=== PATIENT | female | born 1950 ===

== ENCOUNTER 2017-05-18 18:44 | Inpatient (IN) ==
[2017-05-18 19:57] LABS: Basophils % 0.2 % (0.0-0.8); Eosinophils # 0.2 10*3/uL (0.0-0.87); Eosinophils % 2.2 % (0.00-10.9); Hematocrit 27.8 VOL% (35.7-47.0); Hemoglobin 9.4 GM/DL (12.0-16.0); Immature Granulocytes % 0.9 %; Immature Granulocytes Absolute 0.08 #; Lymphocytes # 0.8 10*3/uL (1.4-4.0); Lymphocytes % 8.8 % (21.3-54.2); Mean Corpuscular HGB Conc 33.8 GM/DL (32-36); Mean Corpuscular Hemoglobin 34 PG (27-34); Mean Corpuscular Volume 101.1 FL (87-102); Mean Platelet Volume 8.8 FL (9.6-12.0); Monocytes # 0.4 10*3/uL (0.11-0.8); Monocytes % 4.7 % (1.7-12.7); Neutrophils # 7.1 10*3/uL (1.4-7.4); Neutrophils % 83.2 % (38.7-73.9); Platelet Count 260 T/CUMM (130-400); Red Blood Count 2.75 MC/CUMM (3.8-5.5); Red Cell Distribution Width 15.6 % (9.3-17.3); White Blood Count 8.5 T/CUMM (4-12)
[2017-05-18 20:05] LABS: Barbiturates Screen,Urine Negative (Negative); Benzodiazepines Screen,Urine Negative (Negative); Cannabinoid Screen,Urine Negative (Negative); Opiate Screen,Urine Negative (Negative); Phencyclidine Screen,Urine Negative (Negative)
[2017-05-18 20:13] LABS: Calcium 7.2 MG/DL (8.5-10.1); Osmolality,Calculated 260.4 MOS/KG (273-304); Potassium 4.5 MMOL/L (3.5-5.1)
[2017-05-18] MEDS ORDERED: GLUCAGON 1 MG VIAL IM PRN (21:21)
[2017-05-18] MEDS ORDERED: ONDANSETRON 4 MG/2 ML VIAL IV PRN (21:21)
[2017-05-18] MEDS ORDERED: DEXTROSE 50% 25 GM/50 ML VIAL IV PRN (21:21)
[2017-05-18] MEDS ORDERED: DILTIAZEM INJ 100 MG in SODIUM CHLORIDE 0.9% 100 ML IV SCH (21:30)
[2017-05-18 21:42] LABS: Risk Ratio 4.38; Thyroid Stimulating Hormone 7.8 uIU/ml (0.358-3.74); VLDL CHOLESTEROL 34.8 MG/DL
[2017-05-18] MEDS ORDERED: ENOXAPARIN 30 MG/0.3 ML SYRINGE ONE (21:53)
[2017-05-18] MEDS ORDERED: DILTIAZEM 100 MG VIAL.ADD IV ONE (21:53)
[2017-05-18] MEDS ORDERED: ENOXAPARIN 40 MG/0.4 ML SYRINGE ONE (21:53)
[2017-05-18] MEDS: ENOXAPARIN 100 MG/ML SYRINGE SUBCUT SCH (22:00)
[2017-05-19 05:03] LABS: Basophils # 0.1 10*3/uL (0.0-0.2); Basophils % 0.5 % (0.0-0.8); Eosinophils # 0.4 10*3/uL (0.0-0.87); Eosinophils % 4.1 % (0.00-10.9); Hematocrit 24.6 VOL% (35.7-47.0); Hemoglobin 8.1 GM/DL (12.0-16.0); Immature Granulocytes % 0.8 %; Immature Granulocytes Absolute 0.08 #; Lymphocytes # 1.1 10*3/uL (1.4-4.0); Lymphocytes % 11.4 % (21.3-54.2); Mean Corpuscular HGB Conc 32.9 GM/DL (32-36); Mean Corpuscular Hemoglobin 34 PG (27-34); Mean Corpuscular Volume 103.4 FL (87-102); Mean Platelet Volume 8.6 FL (9.6-12.0); Monocytes # 0.6 10*3/uL (0.11-0.8); Monocytes % 6.1 % (1.7-12.7); Neutrophils # 7.6 10*3/uL (1.4-7.4); Neutrophils % 77.1 % (38.7-73.9); Platelet Count 250 T/CUMM (130-400); Red Blood Count 2.38 MC/CUMM (3.8-5.5); Red Cell Distribution Width 15.5 % (9.3-17.3); White Blood Count 9.9 T/CUMM (4-12)
[2017-05-19 05:41] LABS: Calcium 7.4 MG/DL (8.5-10.1); Osmolality,Calculated 253.4 MOS/KG (273-304); Potassium 4.4 MMOL/L (3.5-5.1)
[2017-05-19 05:44] LABS: % Iron Saturation 19.4 % (18-50)
[2017-05-19 06:32] LABS: Sedimentation Rate-Westergren 126 MM/HR (0-30)
[2017-05-19 06:46] LABS: Folate 10.1 NG/ML (5.4-24.0); Vitamin B12 1290 PG/ML (211-911)
[2017-05-19] MEDS ORDERED: ALBUTEROL 2.5 MG/3 ML NEB RESP TX PRN (07:50)
[2017-05-19] MEDS ORDERED: FUROSEMIDE 20 MG/2 ML VIAL IV SCH ×2 (08:00)
[2017-05-19] MEDS ORDERED: LISINOPRIL 10 MG TABLET PO SCH (09:00)
[2017-05-19] MEDS: ASPIRIN EC 81 MG TABLET PO SCH (09:10)
[2017-05-19] MEDS: POTASSIUM CHLORIDE 20 MEQ TABLET PO SCH (09:10)
[2017-05-19] MEDS: CALCIUM (CARBONATE)/VITAMIN D 500 MG-200 UNIT TABLET PO SCH (09:10)
[2017-05-19] MEDS: FERROUS SULFATE 325 MG TABLET PO SCH ×2 (09:10→21:16)
[2017-05-19] MEDS: MONTELUKAST 10 MG TABLET PO SCH (09:10)
[2017-05-19] MEDS: ENOXAPARIN 100 MG/ML SYRINGE SUBCUT SCH ×2 (09:11→21:15)
[2017-05-19] MEDS: FLUOROMETHOLONE 0.1% OPH SUSP 5 ML BOTTLE BOTH EYES SCH ×4 (09:18→21:16)
[2017-05-19] MEDS ORDERED: LISINOPRIL 5 MG TABLET PO SCH (09:59)
[2017-05-19 10:29] LABS: CKMB % 3.1 %
[2017-05-19 10:30] LABS: Troponin I Only 0.173 NG/ML (0.00-0.045)
[2017-05-19] MEDS ORDERED: METOPROLOL TARTRATE 25 MG TABLET PO SCH (10:30)
[2017-05-19] MEDS: LISINOPRIL 2.5 MG TABLET PO SCH (10:56)
[2017-05-19] MEDS: METOPROLOL TARTRATE 25 MG TABLET PO SCH ×2 (11:27→21:15)
[2017-05-19] MEDS: FENOFIBRATE 145 MG TABLET PO SCH (11:28)
[2017-05-19] MEDS: PANTOPRAZOLE 40 MG TABLET PO SCH (11:28)
[2017-05-19 12:41] LABS: CKMB % 3.1 %
[2017-05-19 12:42] LABS: Troponin I Only 0.203 NG/ML (0.00-0.045)
[2017-05-19] MEDS: FUROSEMIDE 20 MG/2 ML VIAL IV SCH (16:59)
[2017-05-19] MEDS ORDERED: INSULIN LISPRO 100 UNIT/ML SUBCUT ONE (20:28)
[2017-05-19] MEDS: POLYVINYL ALCOHOL 1.4% OPH SOLN 15 ML BOTTLE BOTH EYES SCH (21:16)
[2017-05-19] MEDS: INSULIN LISPRO 100 UNIT/ML SUBCUT SCH (22:00)
[2017-05-20 05:27] LABS: Basophils % 0.3 % (0.0-0.8); Eosinophils # 0.1 10*3/uL (0.0-0.87); Eosinophils % 0.6 % (0.00-10.9); Hematocrit 25.5 VOL% (35.7-47.0); Hemoglobin 8.3 GM/DL (12.0-16.0); Immature Granulocytes % 0.9 %; Immature Granulocytes Absolute 0.11 #; Lymphocytes # 1.2 10*3/uL (1.4-4.0); Lymphocytes % 9.3 % (21.3-54.2); Mean Corpuscular HGB Conc 32.5 GM/DL (32-36); Mean Corpuscular Hemoglobin 34 PG (27-34); Mean Corpuscular Volume 102.8 FL (87-102); Mean Platelet Volume 9.1 FL (9.6-12.0); Monocytes # 0.6 10*3/uL (0.11-0.8); Monocytes % 4.9 % (1.7-12.7); Neutrophils # 10.7 10*3/uL (1.4-7.4); Platelet Count 261 T/CUMM (130-400); Red Blood Count 2.48 MC/CUMM (3.8-5.5); Red Cell Distribution Width 15.5 % (9.3-17.3); White Blood Count 12.7 T/CUMM (4-12)
[2017-05-20 05:56] LABS: Calcium 7.4 MG/DL (8.5-10.1); Osmolality,Calculated 247.8 MOS/KG (273-304); Potassium 4.2 MMOL/L (3.5-5.1)
[2017-05-20] MEDS: FUROSEMIDE 20 MG/2 ML VIAL IV SCH ×2 (08:54→16:46)
[2017-05-20] MEDS: MONTELUKAST 10 MG TABLET PO SCH (08:55)
[2017-05-20] MEDS: FERROUS SULFATE 325 MG TABLET PO SCH ×2 (08:55→21:21)
[2017-05-20] MEDS: LISINOPRIL 2.5 MG TABLET PO SCH (08:56)
[2017-05-20] MEDS: CALCIUM (CARBONATE)/VITAMIN D 500 MG-200 UNIT TABLET PO SCH (08:56)
[2017-05-20] MEDS: FENOFIBRATE 145 MG TABLET PO SCH (08:56)
[2017-05-20] MEDS: INSULIN LISPRO 100 UNIT/ML SUBCUT SCH ×4 (08:57→21:21)
[2017-05-20] MEDS: POTASSIUM CHLORIDE 20 MEQ TABLET PO SCH (08:58)
[2017-05-20] MEDS: METOPROLOL TARTRATE 25 MG TABLET PO SCH ×2 (08:58→21:21)
[2017-05-20] MEDS: ASPIRIN EC 81 MG TABLET PO SCH (08:58)
[2017-05-20] MEDS: PANTOPRAZOLE 40 MG TABLET PO SCH (08:59)
[2017-05-20] MEDS: FLUOROMETHOLONE 0.1% OPH SUSP 5 ML BOTTLE BOTH EYES SCH ×4 (09:00→21:21)
[2017-05-20] MEDS: POLYVINYL ALCOHOL 1.4% OPH SOLN 15 ML BOTTLE BOTH EYES SCH ×2 (09:00→21:21)
[2017-05-20] MEDS: ENOXAPARIN 100 MG/ML SYRINGE SUBCUT SCH ×2 (09:00→21:21)
[2017-05-20] MEDS ORDERED: METOPROLOL TARTRATE 25 MG TABLET PO ONE (09:54)
[2017-05-20] MEDS ORDERED: DIGOXIN 0.5 MG/2 ML AMP IV ONE (10:40)
[2017-05-20] MEDS ORDERED: MAGNESIUM SULF RIDER 4 GM in PREMIX 1 EACH IV PRN (12:19)
[2017-05-20] MEDS ORDERED: MAGNESIUM SULF RIDER 2 GM in PREMIX 1 EACH IV PRN (12:19)
[2017-05-21] MEDS: ACETAMINOPHEN 325 MG TABLET PO PRN ×3 (00:14→10:47)
[2017-05-21 05:14] LABS: Basophils % 0.4 % (0.0-0.8); Eosinophils # 0.2 10*3/uL (0.0-0.87); Eosinophils % 1.6 % (0.00-10.9); Hematocrit 25.6 VOL% (35.7-47.0); Hemoglobin 8.6 GM/DL (12.0-16.0); Immature Granulocytes % 0.6 %; Immature Granulocytes Absolute 0.07 #; Lymphocytes # 1.1 10*3/uL (1.4-4.0); Lymphocytes % 9.8 % (21.3-54.2); Mean Corpuscular HGB Conc 33.6 GM/DL (32-36); Mean Corpuscular Hemoglobin 34 PG (27-34); Mean Platelet Volume 9.2 FL (9.6-12.0); Monocytes # 0.5 10*3/uL (0.11-0.8); Monocytes % 4.2 % (1.7-12.7); Neutrophils # 9.5 10*3/uL (1.4-7.4); Neutrophils % 83.4 % (38.7-73.9); Platelet Count 259 T/CUMM (130-400); Red Blood Count 2.51 MC/CUMM (3.8-5.5); Red Cell Distribution Width 15.1 % (9.3-17.3); White Blood Count 11.4 T/CUMM (4-12)
[2017-05-21 05:42] LABS: Calcium 7.5 MG/DL (8.5-10.1); Osmolality,Calculated 244.2 MOS/KG (273-304); Potassium 4.1 MMOL/L (3.5-5.1)
[2017-05-21] MEDS ORDERED: DIGOXIN 0.5 MG/2 ML AMP IV ONE (10:04)
[2017-05-21] MEDS: FUROSEMIDE 20 MG/2 ML VIAL IV SCH (10:13)
[2017-05-21] MEDS: INSULIN LISPRO 100 UNIT/ML SUBCUT SCH ×4 (10:38→22:28)
[2017-05-21] MEDS: POLYVINYL ALCOHOL 1.4% OPH SOLN 15 ML BOTTLE BOTH EYES SCH ×2 (10:43→20:43)
[2017-05-21] MEDS: ASPIRIN EC 81 MG TABLET PO SCH (10:44)
[2017-05-21] MEDS: FERROUS SULFATE 325 MG TABLET PO SCH ×2 (10:44→21:10)
[2017-05-21] MEDS: FLUOROMETHOLONE 0.1% OPH SUSP 5 ML BOTTLE BOTH EYES SCH ×4 (10:44→20:42)
[2017-05-21] MEDS: POTASSIUM CHLORIDE 20 MEQ TABLET PO SCH (10:45)
[2017-05-21] MEDS: METOPROLOL TARTRATE 25 MG TABLET PO SCH ×2 (10:45→20:41)
[2017-05-21] MEDS: CALCIUM (CARBONATE)/VITAMIN D 500 MG-200 UNIT TABLET PO SCH (10:45)
[2017-05-21] MEDS: ENOXAPARIN 100 MG/ML SYRINGE SUBCUT SCH ×2 (10:46→21:10)
[2017-05-21] MEDS: PANTOPRAZOLE 40 MG TABLET PO SCH (10:46)
[2017-05-21] MEDS: MONTELUKAST 10 MG TABLET PO SCH (10:46)
[2017-05-21] MEDS: FENOFIBRATE 145 MG TABLET PO SCH (10:46)
[2017-05-21] MEDS ORDERED: DIGOXIN 0.125 MG TABLET PO SCH (13:00)
[2017-05-21] MEDS: DIGOXIN 0.125 MG TABLET PO SCH (15:12)
[2017-05-22 05:49] LABS: Basophils % 0.3 % (0.0-0.8); Eosinophils # 0.3 10*3/uL (0.0-0.87); Eosinophils % 2.7 % (0.00-10.9); Hematocrit 27.2 VOL% (35.7-47.0); Hemoglobin 9.2 GM/DL (12.0-16.0); Immature Granulocytes % 0.7 %; Immature Granulocytes Absolute 0.08 #; Lymphocytes # 1.3 10*3/uL (1.4-4.0); Lymphocytes % 11.5 % (21.3-54.2); Mean Corpuscular HGB Conc 33.8 GM/DL (32-36); Mean Corpuscular Hemoglobin 34 PG (27-34); Mean Corpuscular Volume 100.4 FL (87-102); Mean Platelet Volume 9.2 FL (9.6-12.0); Monocytes # 0.5 10*3/uL (0.11-0.8); Monocytes % 4.8 % (1.7-12.7); Neutrophils # 8.8 10*3/uL (1.4-7.4); Platelet Count 285 T/CUMM (130-400); Red Blood Count 2.71 MC/CUMM (3.8-5.5); Red Cell Distribution Width 15.3 % (9.3-17.3)
[2017-05-22 06:21] LABS: Calcium 7.7 MG/DL (8.5-10.1); Osmolality,Calculated 246.1 MOS/KG (273-304); Potassium 4.7 MMOL/L (3.5-5.1)
[2017-05-22] MEDS: INSULIN LISPRO 100 UNIT/ML SUBCUT SCH ×4 (09:59→20:55)
[2017-05-22] MEDS: ASPIRIN EC 81 MG TABLET PO SCH (10:00)
[2017-05-22] MEDS: POLYVINYL ALCOHOL 1.4% OPH SOLN 15 ML BOTTLE BOTH EYES SCH ×2 (10:00→20:56)
[2017-05-22] MEDS: POTASSIUM CHLORIDE 20 MEQ TABLET PO SCH (10:01)
[2017-05-22] MEDS: FLUOROMETHOLONE 0.1% OPH SUSP 5 ML BOTTLE BOTH EYES SCH ×4 (10:01→20:55)
[2017-05-22] MEDS: METOPROLOL TARTRATE 25 MG TABLET PO SCH ×2 (10:02→20:56)
[2017-05-22] MEDS: CALCIUM (CARBONATE)/VITAMIN D 500 MG-200 UNIT TABLET PO SCH (10:02)
[2017-05-22] MEDS: PANTOPRAZOLE 40 MG TABLET PO SCH (10:02)
[2017-05-22] MEDS: FERROUS SULFATE 325 MG TABLET PO SCH ×2 (10:02→20:55)
[2017-05-22] MEDS: MONTELUKAST 10 MG TABLET PO SCH (10:03)
[2017-05-22] MEDS: ACETAMINOPHEN 325 MG TABLET PO PRN (10:03)
[2017-05-22] MEDS: ENOXAPARIN 100 MG/ML SYRINGE SUBCUT SCH ×2 (10:03→21:11)
[2017-05-22] MEDS: FENOFIBRATE 145 MG TABLET PO SCH (10:03)
[2017-05-22] MEDS: DIGOXIN 0.125 MG TABLET PO SCH (12:46)
[2017-05-23] MEDS: ACETAMINOPHEN 325 MG TABLET PO PRN ×2 (03:57→22:35)
[2017-05-23 05:13] LABS: Basophils % 0.4 % (0.0-0.8); Eosinophils # 0.2 10*3/uL (0.0-0.87); Eosinophils % 1.9 % (0.00-10.9); Hematocrit 24.6 VOL% (35.7-47.0); Hemoglobin 8.1 GM/DL (12.0-16.0); Immature Granulocytes % 0.8 %; Immature Granulocytes Absolute 0.09 #; Lymphocytes # 1.3 10*3/uL (1.4-4.0); Lymphocytes % 11.7 % (21.3-54.2); Mean Corpuscular HGB Conc 32.9 GM/DL (32-36); Mean Corpuscular Hemoglobin 34 PG (27-34); Mean Corpuscular Volume 102.9 FL (87-102); Monocytes # 0.6 10*3/uL (0.11-0.8); Monocytes % 5.5 % (1.7-12.7); Neutrophils # 9.1 10*3/uL (1.4-7.4); Neutrophils % 79.7 % (38.7-73.9); Platelet Count 270 T/CUMM (130-400); Red Blood Count 2.39 MC/CUMM (3.8-5.5); Red Cell Distribution Width 14.7 % (9.3-17.3); White Blood Count 11.3 T/CUMM (4-12)
[2017-05-23 05:41] LABS: Calcium 7.6 MG/DL (8.5-10.1); Osmolality,Calculated 244.1 MOS/KG (273-304)
[2017-05-23] MEDS: POLYVINYL ALCOHOL 1.4% OPH SOLN 15 ML BOTTLE BOTH EYES SCH ×2 (09:05→20:58)
[2017-05-23] MEDS: FLUOROMETHOLONE 0.1% OPH SUSP 5 ML BOTTLE BOTH EYES SCH ×4 (09:06→20:57)
[2017-05-23] MEDS: ENOXAPARIN 100 MG/ML SYRINGE SUBCUT SCH ×2 (09:07→20:59)
[2017-05-23] MEDS: ASPIRIN EC 81 MG TABLET PO SCH (09:11)
[2017-05-23] MEDS: FERROUS SULFATE 325 MG TABLET PO SCH ×2 (09:11→20:53)
[2017-05-23] MEDS: MONTELUKAST 10 MG TABLET PO SCH (09:12)
[2017-05-23] MEDS: METOPROLOL TARTRATE 25 MG TABLET PO SCH ×2 (09:12→20:53)
[2017-05-23] MEDS: POTASSIUM CHLORIDE 20 MEQ TABLET PO SCH (09:12)
[2017-05-23] MEDS: PANTOPRAZOLE 40 MG TABLET PO SCH (09:12)
[2017-05-23] MEDS: FENOFIBRATE 145 MG TABLET PO SCH (09:12)
[2017-05-23] MEDS: CALCIUM (CARBONATE)/VITAMIN D 500 MG-200 UNIT TABLET PO SCH (09:12)
[2017-05-23] MEDS: INSULIN LISPRO 100 UNIT/ML SUBCUT SCH ×4 (10:30→20:53)
[2017-05-23] MEDS ORDERED: TUBERCULIN SKIN TEST 0.1 ML SYRINGE INTRADERM ONE (11:05)
[2017-05-23] MEDS: SODIUM CHLORIDE 1 GM TABLET PO SCH ×2 (11:55→16:52)
[2017-05-23] MEDS: DIGOXIN 0.125 MG TABLET PO SCH (13:24)
[2017-05-24 03:09] LABS: Calcium 7.3 MG/DL (8.5-10.1); Osmolality,Calculated 250.8 MOS/KG (273-304); Potassium 4.8 MMOL/L (3.5-5.1)
[2017-05-24] MEDS: INSULIN LISPRO 100 UNIT/ML SUBCUT SCH ×4 (07:57→21:57)
[2017-05-24] MEDS: ACETAMINOPHEN 325 MG TABLET PO PRN (09:17)
[2017-05-24] MEDS: FLUOROMETHOLONE 0.1% OPH SUSP 5 ML BOTTLE BOTH EYES SCH ×4 (09:18→22:00)
[2017-05-24] MEDS: CALCIUM (CARBONATE)/VITAMIN D 500 MG-200 UNIT TABLET PO SCH (09:18)
[2017-05-24] MEDS: MONTELUKAST 10 MG TABLET PO SCH (09:18)
[2017-05-24] MEDS: POTASSIUM CHLORIDE 20 MEQ TABLET PO SCH (09:18)
[2017-05-24] MEDS: METOPROLOL TARTRATE 25 MG TABLET PO SCH ×2 (09:18→21:56)
[2017-05-24] MEDS: ENOXAPARIN 100 MG/ML SYRINGE SUBCUT SCH ×2 (09:18→21:56)
[2017-05-24] MEDS: FERROUS SULFATE 325 MG TABLET PO SCH ×2 (09:18→21:56)
[2017-05-24] MEDS: PANTOPRAZOLE 40 MG TABLET PO SCH (09:18)
[2017-05-24] MEDS: SODIUM CHLORIDE 1 GM TABLET PO SCH ×3 (09:18→17:51)
[2017-05-24] MEDS: ASPIRIN EC 81 MG TABLET PO SCH (09:18)
[2017-05-24] MEDS: POLYVINYL ALCOHOL 1.4% OPH SOLN 15 ML BOTTLE BOTH EYES SCH ×2 (09:18→23:07)
[2017-05-24] MEDS: FENOFIBRATE 145 MG TABLET PO SCH (09:18)
[2017-05-24] MEDS ORDERED: DIGOXIN 0.5 MG/2 ML AMP IV ONE (11:27)
[2017-05-24] MEDS: DIGOXIN 0.125 MG TABLET PO SCH (12:32)
[2017-05-24 13:38] LABS: Basophils % 0.2 % (0.0-0.8); Eosinophils # 0.1 10*3/uL (0.0-0.87); Eosinophils % 0.4 % (0.00-10.9); Hematocrit 24.4 VOL% (35.7-47.0); Immature Granulocytes % 0.8 %; Immature Granulocytes Absolute 0.11 #; Lymphocytes # 0.8 10*3/uL (1.4-4.0); Lymphocytes % 6.1 % (21.3-54.2); Mean Corpuscular HGB Conc 32.8 GM/DL (32-36); Mean Corpuscular Hemoglobin 34 PG (27-34); Mean Corpuscular Volume 104.7 FL (87-102); Mean Platelet Volume 8.9 FL (9.6-12.0); Monocytes # 0.8 10*3/uL (0.11-0.8); Monocytes % 5.9 % (1.7-12.7); Neutrophils # 11.4 10*3/uL (1.4-7.4); Neutrophils % 86.6 % (38.7-73.9); Platelet Count 287 T/CUMM (130-400); Red Blood Count 2.33 MC/CUMM (3.8-5.5); Red Cell Distribution Width 15.4 % (9.3-17.3); White Blood Count 13.2 T/CUMM (4-12)
[2017-05-24] MEDS ORDERED: SODIUM CHLORIDE 0.9% 1,000 ML IV PRN (20:44)
[2017-05-25] MEDS: ZALEPLON 5 MG CAPSULE PO PRN ×2 (00:31→21:33)
[2017-05-25] MEDS: LEVOTHYROXINE 25 MCG TABLET PO SCH (06:11)
[2017-05-25 07:37] LABS: Hematocrit 32.5 VOL% (35.7-47.0); Hemoglobin 11.1 GM/DL (12.0-16.0)
[2017-05-25 07:38] LABS: Basophils % 0.2 % (0.0-0.8); Eosinophils # 0.1 10*3/uL (0.0-0.87); Eosinophils % 0.9 % (0.00-10.9); Hematocrit 33.1 VOL% (35.7-47.0); Immature Granulocytes % 0.6 %; Immature Granulocytes Absolute 0.07 #; Lymphocytes % 8.5 % (21.3-54.2); Mean Corpuscular HGB Conc 33.2 GM/DL (32-36); Mean Corpuscular Hemoglobin 32 PG (27-34); Mean Corpuscular Volume 96.2 FL (87-102); Mean Platelet Volume 9.3 FL (9.6-12.0); Monocytes # 0.8 10*3/uL (0.11-0.8); Monocytes % 6.4 % (1.7-12.7); Neutrophils # 10.1 10*3/uL (1.4-7.4); Neutrophils % 83.4 % (38.7-73.9); Platelet Count 212 T/CUMM (130-400); Red Blood Count 3.44 MC/CUMM (3.8-5.5); Red Cell Distribution Width 19.5 % (9.3-17.3); White Blood Count 12.1 T/CUMM (4-12)
[2017-05-25] MEDS ORDERED: PHENOL 1.4% THROAT SPRAY 177 ML BOTTLE PO PRN (08:02)
[2017-05-25 08:05] LABS: Calcium 7.6 MG/DL (8.5-10.1); Osmolality,Calculated 252.5 MOS/KG (273-304)
[2017-05-25] MEDS: INSULIN LISPRO 100 UNIT/ML SUBCUT SCH ×4 (08:15→21:33)
[2017-05-25] MEDS: SODIUM CHLORIDE 1 GM TABLET PO SCH ×3 (08:22→17:07)
[2017-05-25] MEDS: METOPROLOL TARTRATE 25 MG TABLET PO SCH ×2 (08:23→21:33)
[2017-05-25] MEDS: CALCIUM (CARBONATE)/VITAMIN D 500 MG-200 UNIT TABLET PO SCH (08:23)
[2017-05-25] MEDS: glyBURIDE 5 MG TABLET PO SCH (08:23)
[2017-05-25] MEDS: MONTELUKAST 10 MG TABLET PO SCH (08:23)
[2017-05-25] MEDS: FENOFIBRATE 145 MG TABLET PO SCH (08:23)
[2017-05-25] MEDS: POLYVINYL ALCOHOL 1.4% OPH SOLN 15 ML BOTTLE BOTH EYES SCH ×2 (08:23→21:32)
[2017-05-25] MEDS: FLUOROMETHOLONE 0.1% OPH SUSP 5 ML BOTTLE BOTH EYES SCH ×4 (08:23→21:32)
[2017-05-25] MEDS: FERROUS SULFATE 325 MG TABLET PO SCH ×2 (08:23→21:33)
[2017-05-25] MEDS: ASPIRIN EC 81 MG TABLET PO SCH (08:23)
[2017-05-25] MEDS: PANTOPRAZOLE 40 MG TABLET PO SCH (08:23)
[2017-05-25] MEDS: POTASSIUM CHLORIDE 20 MEQ TABLET PO SCH (08:23)
[2017-05-25] MEDS: ENOXAPARIN 100 MG/ML SYRINGE SUBCUT SCH ×2 (09:02→21:33)
[2017-05-25] MEDS: ACETAMINOPHEN 325 MG TABLET PO PRN (12:25)
[2017-05-25] MEDS: DIGOXIN 0.125 MG TABLET PO SCH (12:42)
[2017-05-26 05:09] LABS: Basophils % 0.2 % (0.0-0.8); Eosinophils # 0.1 10*3/uL (0.0-0.87); Eosinophils % 1.4 % (0.00-10.9); Hematocrit 29.3 VOL% (35.7-47.0); Hemoglobin 9.7 GM/DL (12.0-16.0); Immature Granulocytes % 0.8 %; Immature Granulocytes Absolute 0.08 #; Lymphocytes # 0.6 10*3/uL (1.4-4.0); Lymphocytes % 5.9 % (21.3-54.2); Mean Corpuscular HGB Conc 33.1 GM/DL (32-36); Mean Corpuscular Hemoglobin 32 PG (27-34); Mean Corpuscular Volume 96.7 FL (87-102); Mean Platelet Volume 9.1 FL (9.6-12.0); Monocytes # 0.8 10*3/uL (0.11-0.8); Monocytes % 8.1 % (1.7-12.7); Neutrophils # 8.6 10*3/uL (1.4-7.4); Neutrophils % 83.6 % (38.7-73.9); Platelet Count 231 T/CUMM (130-400); Red Blood Count 3.03 MC/CUMM (3.8-5.5); Red Cell Distribution Width 19.8 % (9.3-17.3); White Blood Count 10.2 T/CUMM (4-12)
[2017-05-26 05:33] LABS: Calcium 7.5 MG/DL (8.5-10.1); Osmolality,Calculated 248.5 MOS/KG (273-304); Potassium 4.5 MMOL/L (3.5-5.1)
[2017-05-26] MEDS: LEVOTHYROXINE 25 MCG TABLET PO SCH (05:38)
[2017-05-26] MEDS: PANTOPRAZOLE 40 MG TABLET PO SCH (09:49)
[2017-05-26] MEDS: FENOFIBRATE 145 MG TABLET PO SCH (09:49)
[2017-05-26] MEDS: ASPIRIN EC 81 MG TABLET PO SCH (09:49)
[2017-05-26] MEDS: CALCIUM (CARBONATE)/VITAMIN D 500 MG-200 UNIT TABLET PO SCH (09:49)
[2017-05-26] MEDS: FERROUS SULFATE 325 MG TABLET PO SCH ×2 (09:49→22:22)
[2017-05-26] MEDS: ENOXAPARIN 100 MG/ML SYRINGE SUBCUT SCH ×2 (09:49→22:21)
[2017-05-26] MEDS: MONTELUKAST 10 MG TABLET PO SCH (09:49)
[2017-05-26] MEDS: INSULIN LISPRO 100 UNIT/ML SUBCUT SCH ×4 (09:50→22:18)
[2017-05-26] MEDS: METOPROLOL TARTRATE 25 MG TABLET PO SCH ×2 (09:50→22:22)
[2017-05-26] MEDS: SODIUM CHLORIDE 1 GM TABLET PO SCH ×3 (09:50→17:35)
[2017-05-26] MEDS: glyBURIDE 5 MG TABLET PO SCH (09:50)
[2017-05-26] MEDS: POLYVINYL ALCOHOL 1.4% OPH SOLN 15 ML BOTTLE BOTH EYES SCH ×2 (09:53→22:22)
[2017-05-26] MEDS: FLUOROMETHOLONE 0.1% OPH SUSP 5 ML BOTTLE BOTH EYES SCH ×4 (09:53→22:23)
[2017-05-26] MEDS: ACETAMINOPHEN 325 MG TABLET PO PRN ×2 (12:09→22:44)
[2017-05-26] MEDS: LEVOFLOXACIN INJ 250 MG in PREMIX 1 EACH IV SCH (12:10)
[2017-05-26] MEDS: DIGOXIN 0.125 MG TABLET PO SCH (13:39)
[2017-05-26] MEDS: cefTAZidime 500 MG in SYRINGE 1 EACH IV SCH ×2 (13:40→22:45)
[2017-05-27 05:23] LABS: Basophils % 0.4 % (0.0-0.8); Eosinophils # 0.4 10*3/uL (0.0-0.87); Eosinophils % 4.4 % (0.00-10.9); Hematocrit 30.1 VOL% (35.7-47.0); Hemoglobin 10.2 GM/DL (12.0-16.0); Immature Granulocytes % 0.8 %; Immature Granulocytes Absolute 0.06 #; Lymphocytes # 0.6 10*3/uL (1.4-4.0); Lymphocytes % 8.1 % (21.3-54.2); Mean Corpuscular HGB Conc 33.9 GM/DL (32-36); Mean Corpuscular Hemoglobin 32 PG (27-34); Mean Corpuscular Volume 95.3 FL (87-102); Mean Platelet Volume 9.3 FL (9.6-12.0); Monocytes # 0.6 10*3/uL (0.11-0.8); Monocytes % 7.5 % (1.7-12.7); Neutrophils # 6.2 10*3/uL (1.4-7.4); Neutrophils % 78.8 % (38.7-73.9); Platelet Count 224 T/CUMM (130-400); Red Blood Count 3.16 MC/CUMM (3.8-5.5); Red Cell Distribution Width 19.9 % (9.3-17.3); White Blood Count 7.9 T/CUMM (4-12)
[2017-05-27 05:55] LABS: Calcium 7.7 MG/DL (8.5-10.1); Osmolality,Calculated 252.2 MOS/KG (273-304); Potassium 4.4 MMOL/L (3.5-5.1)
[2017-05-27] MEDS: LEVOTHYROXINE 25 MCG TABLET PO SCH (06:49)
[2017-05-27] MEDS: FENOFIBRATE 145 MG TABLET PO SCH (09:18)
[2017-05-27] MEDS: SODIUM CHLORIDE 1 GM TABLET PO SCH ×3 (09:18→18:13)
[2017-05-27] MEDS: ENOXAPARIN 100 MG/ML SYRINGE SUBCUT SCH ×2 (09:18→21:27)
[2017-05-27] MEDS: METOPROLOL TARTRATE 25 MG TABLET PO SCH ×2 (09:18→21:27)
[2017-05-27] MEDS: FERROUS SULFATE 325 MG TABLET PO SCH ×2 (09:19→21:26)
[2017-05-27] MEDS: PANTOPRAZOLE 40 MG TABLET PO SCH (09:19)
[2017-05-27] MEDS: CALCIUM (CARBONATE)/VITAMIN D 500 MG-200 UNIT TABLET PO SCH (09:19)
[2017-05-27] MEDS: glyBURIDE 5 MG TABLET PO SCH (09:20)
[2017-05-27] MEDS: FLUOROMETHOLONE 0.1% OPH SUSP 5 ML BOTTLE BOTH EYES SCH ×4 (09:25→21:35)
[2017-05-27] MEDS: POLYVINYL ALCOHOL 1.4% OPH SOLN 15 ML BOTTLE BOTH EYES SCH ×2 (09:26→21:35)
[2017-05-27] MEDS: INSULIN LISPRO 100 UNIT/ML SUBCUT SCH ×4 (09:27→21:47)
[2017-05-27] MEDS: MONTELUKAST 10 MG TABLET PO SCH (09:36)
[2017-05-27] MEDS: ASPIRIN EC 81 MG TABLET PO SCH (11:22)
[2017-05-27] MEDS ORDERED: traMADol 50 MG TABLET PO PRN (12:22)
[2017-05-27] MEDS: LEVOFLOXACIN INJ 250 MG in PREMIX 1 EACH IV SCH (12:42)
[2017-05-27] MEDS: DORNASE ALFA 2.5 MG/2.5 ML VIAL RESP TX SCH ×2 (15:33→20:24)
[2017-05-27] MEDS: cefTAZidime 500 MG in SYRINGE 1 EACH IV SCH ×3 (16:04→21:27)
[2017-05-27] MEDS: DEXTROSE 50% 25 GM/50 ML VIAL IV PRN (16:29)
[2017-05-27] MEDS: ACETAMINOPHEN 325 MG TABLET PO PRN (21:26)
[2017-05-27] MEDS: ZALEPLON 5 MG CAPSULE PO PRN (21:27)
[2017-05-28] MEDS: ACETAMINOPHEN 325 MG TABLET PO PRN ×2 (02:28→09:14)
[2017-05-28 05:50] LABS: Basophils # 0.1 10*3/uL (0.0-0.2); Basophils % 0.7 % (0.0-0.8); Eosinophils # 0.5 10*3/uL (0.0-0.87); Eosinophils % 6.9 % (0.00-10.9); Hematocrit 29.4 VOL% (35.7-47.0); Hemoglobin 9.9 GM/DL (12.0-16.0); Immature Granulocytes % 0.6 %; Immature Granulocytes Absolute 0.04 #; Lymphocytes # 0.7 10*3/uL (1.4-4.0); Lymphocytes % 11.1 % (21.3-54.2); Mean Corpuscular HGB Conc 33.7 GM/DL (32-36); Mean Corpuscular Hemoglobin 33 PG (27-34); Mean Corpuscular Volume 97.7 FL (87-102); Mean Platelet Volume 9.3 FL (9.6-12.0); Monocytes # 0.8 10*3/uL (0.11-0.8); Monocytes % 11.2 % (1.7-12.7); Neutrophils # 4.6 10*3/uL (1.4-7.4); Neutrophils % 69.5 % (38.7-73.9); Platelet Count 211 T/CUMM (130-400); Red Blood Count 3.01 MC/CUMM (3.8-5.5); White Blood Count 6.7 T/CUMM (4-12)
[2017-05-28] MEDS: LEVOTHYROXINE 25 MCG TABLET PO SCH (06:25)
[2017-05-28] MEDS: cefTAZidime 500 MG in SYRINGE 1 EACH IV SCH ×3 (06:27→22:01)
[2017-05-28 06:47] LABS: Calcium 7.5 MG/DL (8.5-10.1); Osmolality,Calculated 249.4 MOS/KG (273-304); Potassium 4.4 MMOL/L (3.5-5.1)
[2017-05-28] MEDS: DORNASE ALFA 2.5 MG/2.5 ML VIAL RESP TX SCH ×2 (07:15→20:45)
[2017-05-28] MEDS: SODIUM CHLORIDE 1 GM TABLET PO SCH ×3 (09:08→11:27)
[2017-05-28] MEDS: FERROUS SULFATE 325 MG TABLET PO SCH ×2 (09:08→22:00)
[2017-05-28] MEDS: FENOFIBRATE 145 MG TABLET PO SCH (09:08)
[2017-05-28] MEDS: MONTELUKAST 10 MG TABLET PO SCH (09:08)
[2017-05-28] MEDS: ASPIRIN EC 81 MG TABLET PO SCH (09:08)
[2017-05-28] MEDS: FLUOROMETHOLONE 0.1% OPH SUSP 5 ML BOTTLE BOTH EYES SCH ×4 (09:09→22:01)
[2017-05-28] MEDS: PANTOPRAZOLE 40 MG TABLET PO SCH (09:09)
[2017-05-28] MEDS: POLYVINYL ALCOHOL 1.4% OPH SOLN 15 ML BOTTLE BOTH EYES SCH ×2 (09:09→22:01)
[2017-05-28] MEDS: INSULIN LISPRO 100 UNIT/ML SUBCUT SCH ×4 (09:10→22:38)
[2017-05-28] MEDS: CALCIUM (CARBONATE)/VITAMIN D 500 MG-200 UNIT TABLET PO SCH (09:14)
[2017-05-28] MEDS: METOPROLOL TARTRATE 25 MG TABLET PO SCH ×2 (09:15→22:00)
[2017-05-28] MEDS: ENOXAPARIN 100 MG/ML SYRINGE SUBCUT SCH (09:15)
[2017-05-28] MEDS: LEVOFLOXACIN INJ 250 MG in PREMIX 1 EACH IV SCH (13:11)
[2017-05-28] MEDS: ALBUTEROL 2.5 MG/3 ML NEB RESP TX SCH ×2 (13:16→20:41)
[2017-05-28] MEDS ORDERED: DILTIAZEM 60 MG TABLET PO SCH (14:30)
[2017-05-28] MEDS: TOLVAPTAN 15 MG TABLET PO SCH (17:41)
[2017-05-28] MEDS: DILTIAZEM CD 120 MG CAPSULE PO SCH (22:00)
[2017-05-28] MEDS: APIXABAN 5 MG TABLET PO SCH (22:00)
[2017-05-29] MEDS: ALBUTEROL 2.5 MG/3 ML NEB RESP TX SCH ×4 (00:41→21:28)
[2017-05-29 05:11] LABS: Calcium 7.5 MG/DL (8.5-10.1); Osmolality,Calculated 256.5 MOS/KG (273-304); Potassium 4.6 MMOL/L (3.5-5.1)
[2017-05-29] MEDS: cefTAZidime 500 MG in SYRINGE 1 EACH IV SCH ×3 (06:29→20:50)
[2017-05-29] MEDS: LEVOTHYROXINE 25 MCG TABLET PO SCH (06:32)
[2017-05-29] MEDS: DORNASE ALFA 2.5 MG/2.5 ML VIAL RESP TX SCH ×2 (08:58→21:28)
[2017-05-29] MEDS: FLUOROMETHOLONE 0.1% OPH SUSP 5 ML BOTTLE BOTH EYES SCH ×4 (09:04→20:50)
[2017-05-29] MEDS: POLYVINYL ALCOHOL 1.4% OPH SOLN 15 ML BOTTLE BOTH EYES SCH ×2 (09:05→20:50)
[2017-05-29] MEDS: MONTELUKAST 10 MG TABLET PO SCH (09:05)
[2017-05-29] MEDS: DILTIAZEM CD 120 MG CAPSULE PO SCH ×2 (09:05→20:49)
[2017-05-29] MEDS: ASPIRIN EC 81 MG TABLET PO SCH (09:05)
[2017-05-29] MEDS: FERROUS SULFATE 325 MG TABLET PO SCH ×2 (09:06→20:49)
[2017-05-29] MEDS: CALCIUM (CARBONATE)/VITAMIN D 500 MG-200 UNIT TABLET PO SCH (09:06)
[2017-05-29] MEDS: METOPROLOL TARTRATE 25 MG TABLET PO SCH ×2 (09:06→20:49)
[2017-05-29] MEDS: FENOFIBRATE 145 MG TABLET PO SCH (09:06)
[2017-05-29] MEDS: PANTOPRAZOLE 40 MG TABLET PO SCH (09:06)
[2017-05-29] MEDS: APIXABAN 5 MG TABLET PO SCH ×2 (09:12→20:49)
[2017-05-29] MEDS: INSULIN LISPRO 100 UNIT/ML SUBCUT SCH ×3 (09:13→16:36)
[2017-05-29] MEDS: TOLVAPTAN 15 MG TABLET PO SCH (09:13)
[2017-05-29] MEDS: LEVOFLOXACIN INJ 250 MG in PREMIX 1 EACH IV SCH (12:44)
[2017-05-29] MEDS: ACETAMINOPHEN 325 MG TABLET PO PRN (20:48)
[2017-05-30] MEDS: cefTAZidime 500 MG in SYRINGE 1 EACH IV SCH ×4 (00:08→21:01)
[2017-05-30] MEDS: INSULIN LISPRO 100 UNIT/ML SUBCUT SCH ×5 (00:08→22:21)
[2017-05-30] MEDS: ALBUTEROL 2.5 MG/3 ML NEB RESP TX SCH ×4 (02:39→21:10)
[2017-05-30 04:48] LABS: Basophils % 0.1 % (0.0-0.8); Eosinophils # 0.1 10*3/uL (0.0-0.87); Eosinophils % 1.1 % (0.00-10.9); Hematocrit 30.7 VOL% (35.7-47.0); Hemoglobin 10.4 GM/DL (12.0-16.0); Immature Granulocytes % 0.7 %; Immature Granulocytes Absolute 0.06 #; Lymphocytes # 0.5 10*3/uL (1.4-4.0); Mean Corpuscular HGB Conc 33.9 GM/DL (32-36); Mean Corpuscular Hemoglobin 33 PG (27-34); Mean Corpuscular Volume 97.2 FL (87-102); Mean Platelet Volume 9.2 FL (9.6-12.0); Monocytes # 0.7 10*3/uL (0.11-0.8); Monocytes % 7.3 % (1.7-12.7); Neutrophils # 7.9 10*3/uL (1.4-7.4); Neutrophils % 85.8 % (38.7-73.9); Platelet Count 222 T/CUMM (130-400); Red Blood Count 3.16 MC/CUMM (3.8-5.5); Red Cell Distribution Width 19.9 % (9.3-17.3); White Blood Count 9.2 T/CUMM (4-12)
[2017-05-30 05:30] LABS: Calcium 8.1 MG/DL (8.5-10.1); Osmolality,Calculated 265.7 MOS/KG (273-304); Potassium 4.4 MMOL/L (3.5-5.1)
[2017-05-30] MEDS: LEVOTHYROXINE 25 MCG TABLET PO SCH (06:01)
[2017-05-30] MEDS: DORNASE ALFA 2.5 MG/2.5 ML VIAL RESP TX SCH ×2 (07:06→21:10)
[2017-05-30] MEDS: POLYVINYL ALCOHOL 1.4% OPH SOLN 15 ML BOTTLE BOTH EYES SCH ×2 (09:16→20:56)
[2017-05-30] MEDS: APIXABAN 5 MG TABLET PO SCH ×2 (09:17→20:55)
[2017-05-30] MEDS: ACETAMINOPHEN 325 MG TABLET PO PRN (09:17)
[2017-05-30] MEDS: MONTELUKAST 10 MG TABLET PO SCH (09:18)
[2017-05-30] MEDS: FERROUS SULFATE 325 MG TABLET PO SCH ×2 (09:18→20:55)
[2017-05-30] MEDS: DILTIAZEM CD 120 MG CAPSULE PO SCH ×2 (09:18→22:21)
[2017-05-30] MEDS: CALCIUM (CARBONATE)/VITAMIN D 500 MG-200 UNIT TABLET PO SCH (09:18)
[2017-05-30] MEDS: ASPIRIN EC 81 MG TABLET PO SCH (09:18)
[2017-05-30] MEDS: PANTOPRAZOLE 40 MG TABLET PO SCH (09:18)
[2017-05-30] MEDS: TOLVAPTAN 15 MG TABLET PO SCH (09:18)
[2017-05-30] MEDS: FENOFIBRATE 145 MG TABLET PO SCH (09:18)
[2017-05-30] MEDS: METOPROLOL TARTRATE 25 MG TABLET PO SCH ×2 (09:18→20:55)
[2017-05-30] MEDS: FLUOROMETHOLONE 0.1% OPH SUSP 5 ML BOTTLE BOTH EYES SCH ×4 (09:18→20:55)
[2017-05-30] MEDS: LEVOFLOXACIN INJ 250 MG in PREMIX 1 EACH IV SCH (11:58)
[2017-05-30] MEDS ORDERED: DILTIAZEM 100 MG VIAL.ADD IV ONE (19:30)
[2017-05-30] MEDS ORDERED: DILTIAZEM 50 MG/10 ML VIAL IV ONE (19:32)
[2017-05-30 19:38] LABS: Allen Test Positive; Pt O2 Delivery Device Simple Mask
[2017-05-30 19:40] LABS: ABG Base Excess -0.3 MMOL/L (-2.5-2.5); ABG HCO3 23.9 MMOL/L (20-26); ABG Oxygen Saturation 82.3 % (95-100); ABG PCO2 35.2 MM HG (35-48); ABG PH 7.433 (7.35-7.45); ABG PO2 48.7 MM HG (80-95); ABG TCO2 21.4 MMOL/L (23-27)
[2017-05-30 19:55] LABS: Calcium 8.3 MG/DL (8.5-10.1); Osmolality,Calculated 264.1 MOS/KG (273-304); Potassium 4.7 MMOL/L (3.5-5.1)
[2017-05-30 20:44] LABS: CKMB % 7.7 %
[2017-05-30 20:46] LABS: Troponin I Only 0.083 NG/ML (0.00-0.045)
[2017-05-30] MEDS ORDERED: FUROSEMIDE 40 MG/4 ML VIAL IV ONE (22:01)
[2017-05-30] MEDS: DILTIAZEM INJ 100 MG in SODIUM CHLORIDE 0.9% 100 ML IV SCH (22:50)
[2017-05-30] MEDS ORDERED: SUCCINYLCHOLINE 200 MG/10 ML VIAL ONE (23:08)
[2017-05-30] MEDS ORDERED: ETOMIDATE 20 MG/10 ML VIAL IV ONE ×2 (23:08→23:10)
[2017-05-30] MEDS ORDERED: SUCCINYLCHOLINE 200 MG/10 ML VIAL IV ONE (23:11)
[2017-05-31] MEDS: MIDAZOLAM 100 MG in SODIUM CHLORIDE 0.9% 80 ML IV SCH (00:23)
[2017-05-31] MEDS: fentaNYL INJ 1,250 MCG in SODIUM CHLORIDE 0.9% 225 ML IV SCH ×2 (00:24→18:17)
[2017-05-31] MEDS: ALBUTEROL 2.5 MG/3 ML NEB RESP TX SCH ×4 (02:13→21:38)
[2017-05-31 02:28] LABS: ABG Base Excess -1.2 MMOL/L (-2.5-2.5); ABG HCO3 23.2 MMOL/L (20-26); ABG Oxygen Saturation 98.6 % (95-100); ABG PCO2 37.8 MM HG (35-48); ABG PH 7.406 (7.35-7.45); ABG PO2 145.4 MM HG (80-95); ABG TCO2 24.4 MMOL/L (23-27)
[2017-05-31 05:05] LABS: Basophils % 0.2 % (0.0-0.8); Eosinophils # 0.1 10*3/uL (0.0-0.87); Eosinophils % 0.4 % (0.00-10.9); Hematocrit 29.7 VOL% (35.7-47.0); Hemoglobin 9.2 GM/DL (12.0-16.0); Immature Granulocytes Absolute 0.14 #; Lymphocytes # 0.7 10*3/uL (1.4-4.0); Mean Corpuscular Hemoglobin 32 PG (27-34); Mean Corpuscular Volume 102.1 FL (87-102); Mean Platelet Volume 9.3 FL (9.6-12.0); Monocytes # 0.8 10*3/uL (0.11-0.8); Monocytes % 6.1 % (1.7-12.7); Neutrophils # 11.7 10*3/uL (1.4-7.4); Neutrophils % 87.3 % (38.7-73.9); Platelet Count 237 T/CUMM (130-400); Red Blood Count 2.91 MC/CUMM (3.8-5.5); Red Cell Distribution Width 19.8 % (9.3-17.3); White Blood Count 13.4 T/CUMM (4-12)
[2017-05-31] MEDS ORDERED: PHENYLEPHRINE DRIP 40 MG/250 ML PREMIX IV SCH (05:30)
[2017-05-31 05:42] LABS: Calcium 7.9 MG/DL (8.5-10.1); Osmolality,Calculated 264.9 MOS/KG (273-304); Potassium 4.7 MMOL/L (3.5-5.1)
[2017-05-31] MEDS: LEVOTHYROXINE 25 MCG TABLET PO SCH (05:49)
[2017-05-31] MEDS: cefTAZidime 500 MG in SYRINGE 1 EACH IV SCH (05:53)
[2017-05-31] MEDS: DILTIAZEM INJ 100 MG in SODIUM CHLORIDE 0.9% 100 ML IV SCH ×2 (06:06→22:44)
[2017-05-31] MEDS: DORNASE ALFA 2.5 MG/2.5 ML VIAL RESP TX SCH ×2 (07:58→21:38)
[2017-05-31] MEDS: FUROSEMIDE 40 MG/4 ML VIAL IV SCH ×2 (09:15→16:55)
[2017-05-31] MEDS: PANTOPRAZOLE 40 MG VIAL IV SCH (09:15)
[2017-05-31] MEDS: CALCIUM (CARBONATE)/VITAMIN D 500 MG-200 UNIT TABLET PO SCH (09:15)
[2017-05-31] MEDS: METOPROLOL TARTRATE 25 MG TABLET PO SCH ×2 (09:16→21:46)
[2017-05-31] MEDS: FENOFIBRATE 145 MG TABLET PO SCH (09:16)
[2017-05-31] MEDS: APIXABAN 5 MG TABLET PO SCH ×2 (09:16→21:45)
[2017-05-31] MEDS: FERROUS SULFATE 325 MG TABLET PO SCH ×2 (09:16→21:46)
[2017-05-31] MEDS: ASPIRIN EC 81 MG TABLET PO SCH (09:16)
[2017-05-31] MEDS: MONTELUKAST 10 MG TABLET PO SCH (09:16)
[2017-05-31] MEDS: DILTIAZEM CD 120 MG CAPSULE PO SCH ×3 (11:01→22:49)
[2017-05-31] MEDS: FLUOROMETHOLONE 0.1% OPH SUSP 5 ML BOTTLE BOTH EYES SCH ×4 (11:02→22:50)
[2017-05-31] MEDS: POLYVINYL ALCOHOL 1.4% OPH SOLN 15 ML BOTTLE BOTH EYES SCH ×2 (11:02→22:45)
[2017-05-31] MEDS: LEVOFLOXACIN INJ 750 MG in PREMIX 1 EACH IV SCH (11:35)
[2017-05-31] MEDS: MEROPENEM 1,000 MG in SYRINGE 1 EACH IV SCH ×2 (11:36→22:50)
[2017-05-31] MEDS: VANCOMYCIN INJ 1,000 MG in SODIUM CHLORIDE 0.9% 250 ML IV SCH (13:14)
[2017-05-31] MEDS: PHENYLEPHRINE INJ 160 MG in SODIUM CHLORIDE 0.9% 234 ML IV SCH (13:15)
[2017-05-31] MEDS: INSULIN LISPRO 100 UNIT/ML SUBCUT SCH ×3 (13:15→18:06)
[2017-05-31] MEDS: DEXTROSE 50% 25 GM/50 ML VIAL IV PRN (18:17)
[2017-06-01] MEDS: VANCOMYCIN INJ 1,000 MG in SODIUM CHLORIDE 0.9% 250 ML IV SCH (00:15)
[2017-06-01] MEDS: fentaNYL INJ 1,250 MCG in SODIUM CHLORIDE 0.9% 225 ML IV SCH ×3 (01:21→22:52)
[2017-06-01] MEDS: MIDAZOLAM 100 MG in SODIUM CHLORIDE 0.9% 80 ML IV SCH ×2 (01:23→22:52)
[2017-06-01] MEDS: INSULIN LISPRO 100 UNIT/ML SUBCUT SCH ×4 (01:23→18:25)
[2017-06-01] MEDS: ALBUTEROL 2.5 MG/3 ML NEB RESP TX SCH ×4 (01:25→20:32)
[2017-06-01 04:08] LABS: Basophils # 0.1 10*3/uL (0.0-0.2); Basophils % 0.9 % (0.0-0.8); Eosinophils % 6.2 % (0.00-10.9); Hematocrit 28.3 VOL% (35.7-47.0); Hemoglobin 9.2 GM/DL (12.0-16.0); Immature Granulocytes % 0.9 %; Immature Granulocytes Absolute 0.13 #; Lymphocytes # 1.2 10*3/uL (1.4-4.0); Mean Corpuscular HGB Conc 32.5 GM/DL (32-36); Mean Corpuscular Hemoglobin 33 PG (27-34); Mean Corpuscular Volume 100.7 FL (87-102); Mean Platelet Volume 9.4 FL (9.6-12.0); Monocytes % 6.2 % (1.7-12.7); Neutrophils # 11.9 10*3/uL (1.4-7.4); Neutrophils % 77.8 % (38.7-73.9); Platelet Count 237 T/CUMM (130-400); Red Blood Count 2.81 MC/CUMM (3.8-5.5); Red Cell Distribution Width 19.5 % (9.3-17.3); White Blood Count 15.2 T/CUMM (4-12)
[2017-06-01 04:11] LABS: ABG Base Excess 0.3 MMOL/L (-2.5-2.5); ABG HCO3 23.5 MMOL/L (20-26); ABG Oxygen Saturation 99.3 % (95-100); ABG PCO2 32.6 MM HG (35-48); ABG PH 7.475 (7.35-7.45); ABG PO2 238.1 MM HG (80-95); ABG TCO2 24.5 MMOL/L (23-27)
[2017-06-01 05:33] LABS: Calcium 7.6 MG/DL (8.5-10.1); Osmolality,Calculated 270.5 MOS/KG (273-304); Potassium 4.2 MMOL/L (3.5-5.1)
[2017-06-01] MEDS: LEVOTHYROXINE 25 MCG TABLET PO SCH (06:11)
[2017-06-01] MEDS: DORNASE ALFA 2.5 MG/2.5 ML VIAL RESP TX SCH ×2 (07:36→20:42)
[2017-06-01] MEDS: APIXABAN 5 MG TABLET PO SCH ×2 (09:31→21:04)
[2017-06-01] MEDS: ASPIRIN EC 81 MG TABLET PO SCH (09:32)
[2017-06-01] MEDS: METOPROLOL TARTRATE 25 MG TABLET PO SCH ×2 (09:32→21:05)
[2017-06-01] MEDS: FUROSEMIDE 40 MG/4 ML VIAL IV SCH ×2 (09:32→15:18)
[2017-06-01] MEDS: CALCIUM (CARBONATE)/VITAMIN D 500 MG-200 UNIT TABLET PO SCH (09:32)
[2017-06-01] MEDS: FENOFIBRATE 145 MG TABLET PO SCH (09:32)
[2017-06-01] MEDS: PANTOPRAZOLE 40 MG VIAL IV SCH (09:32)
[2017-06-01] MEDS: MONTELUKAST 10 MG TABLET PO SCH (09:32)
[2017-06-01] MEDS: FERROUS SULFATE 325 MG TABLET PO SCH ×2 (09:32→21:03)
[2017-06-01] MEDS: MEROPENEM 1,000 MG in SYRINGE 1 EACH IV SCH ×2 (09:57→21:05)
[2017-06-01] MEDS: LEVOFLOXACIN INJ 750 MG in PREMIX 1 EACH IV SCH (09:57)
[2017-06-01] MEDS: DILTIAZEM CD 120 MG CAPSULE PO SCH ×2 (10:02→21:04)
[2017-06-01] MEDS: POLYVINYL ALCOHOL 1.4% OPH SOLN 15 ML BOTTLE BOTH EYES SCH ×2 (10:13→21:05)
[2017-06-01] MEDS: FLUOROMETHOLONE 0.1% OPH SUSP 5 ML BOTTLE BOTH EYES SCH ×4 (10:13→21:05)
[2017-06-01] MEDS: PHENYLEPHRINE INJ 160 MG in SODIUM CHLORIDE 0.9% 234 ML IV SCH ×2 (10:15→15:22)
[2017-06-01] MEDS: DILTIAZEM INJ 100 MG in SODIUM CHLORIDE 0.9% 100 ML IV SCH ×2 (11:01→22:51)
[2017-06-01] MEDS ORDERED: SODIUM CHLORIDE 0.9% 250 ML IV ONE (18:30)
[2017-06-02] MEDS ORDERED: VANCOMYCIN INJ 1,000 MG in SODIUM CHLORIDE 0.9% 250 ML IV SCH
[2017-06-02] MEDS: INSULIN LISPRO 100 UNIT/ML SUBCUT SCH ×4 (00:45→18:34)
[2017-06-02] MEDS ORDERED: SODIUM CHLORIDE 0.9% 250 ML IV ONE (01:00)
[2017-06-02] MEDS: ALBUTEROL 2.5 MG/3 ML NEB RESP TX SCH ×4 (01:38→19:32)
[2017-06-02] MEDS: PHENYLEPHRINE INJ 160 MG in SODIUM CHLORIDE 0.9% 234 ML IV SCH ×3 (03:27→22:06)
[2017-06-02 04:23] LABS: Basophils # 0.1 10*3/uL (0.0-0.2); Basophils % 0.8 % (0.0-0.8); Eosinophils # 1.1 10*3/uL (0.0-0.87); Hematocrit 28.4 VOL% (35.7-47.0); Hemoglobin 9.1 GM/DL (12.0-16.0); Immature Granulocytes % 1.1 %; Immature Granulocytes Absolute 0.18 #; Lymphocytes # 0.9 10*3/uL (1.4-4.0); Lymphocytes % 5.5 % (21.3-54.2); Mean Corpuscular Hemoglobin 33 PG (27-34); Mean Corpuscular Volume 101.8 FL (87-102); Mean Platelet Volume 9.4 FL (9.6-12.0); Monocytes # 0.8 10*3/uL (0.11-0.8); Neutrophils # 12.7 10*3/uL (1.4-7.4); Neutrophils % 80.6 % (38.7-73.9); Platelet Count 217 T/CUMM (130-400); Red Blood Count 2.79 MC/CUMM (3.8-5.5); Red Cell Distribution Width 19.9 % (9.3-17.3); White Blood Count 15.8 T/CUMM (4-12)
[2017-06-02 04:33] LABS: ABG Base Excess -1.5 MMOL/L (-2.5-2.5); ABG HCO3 23.2 MMOL/L (20-26); ABG Oxygen Saturation 99.4 % (95-100); ABG PH 7.376 (7.35-7.45); ABG TCO2 21.6 MMOL/L (23-27)
[2017-06-02 05:04] LABS: Prealbumin < 3.0 MG/DL (20-40)
[2017-06-02 05:23] LABS: Calcium 7.5 MG/DL (8.5-10.1); Osmolality,Calculated 282.2 MOS/KG (273-304); Potassium 4.2 MMOL/L (3.5-5.1)
[2017-06-02] MEDS: LEVOTHYROXINE 25 MCG TABLET PO SCH (05:50)
[2017-06-02] MEDS: DILTIAZEM INJ 100 MG in SODIUM CHLORIDE 0.9% 100 ML IV SCH ×2 (05:51→21:52)
[2017-06-02] MEDS: fentaNYL INJ 1,250 MCG in SODIUM CHLORIDE 0.9% 225 ML IV SCH ×4 (05:53→23:36)
[2017-06-02] MEDS: DORNASE ALFA 2.5 MG/2.5 ML VIAL RESP TX SCH ×2 (07:35→19:32)
[2017-06-02] MEDS ORDERED: SODIUM CHLORIDE 0.9% 500 ML IV ONE ×2 (09:00→17:01)
[2017-06-02] MEDS: FUROSEMIDE 40 MG/4 ML VIAL IV SCH (09:36)
[2017-06-02] MEDS: POLYVINYL ALCOHOL 1.4% OPH SOLN 15 ML BOTTLE BOTH EYES SCH ×2 (09:37→21:27)
[2017-06-02] MEDS: PANTOPRAZOLE 40 MG VIAL IV SCH (09:37)
[2017-06-02] MEDS: MONTELUKAST 10 MG TABLET PO SCH (09:39)
[2017-06-02] MEDS: METOPROLOL TARTRATE 25 MG TABLET PO SCH ×2 (09:40→21:46)
[2017-06-02] MEDS: FENOFIBRATE 145 MG TABLET PO SCH (09:40)
[2017-06-02] MEDS: CALCIUM (CARBONATE)/VITAMIN D 500 MG-200 UNIT TABLET PO SCH (09:40)
[2017-06-02] MEDS: FERROUS SULFATE 325 MG TABLET PO SCH ×2 (09:40→21:27)
[2017-06-02] MEDS: ASPIRIN EC 81 MG TABLET PO SCH (09:40)
[2017-06-02] MEDS: APIXABAN 5 MG TABLET PO SCH ×2 (09:40→21:27)
[2017-06-02] MEDS: FLUOROMETHOLONE 0.1% OPH SUSP 5 ML BOTTLE BOTH EYES SCH ×4 (09:57→21:27)
[2017-06-02] MEDS: DILTIAZEM CD 120 MG CAPSULE PO SCH (09:57)
[2017-06-02] MEDS: MEROPENEM 1,000 MG in SYRINGE 1 EACH IV SCH ×2 (09:58→21:55)
[2017-06-02] MEDS ORDERED: LACTULOSE 20 GM/30 ML UDCUP PO PRN (13:20)
[2017-06-02] MEDS: DILTIAZEM 30 MG TABLET PO SCH ×2 (17:40→21:27)
[2017-06-02] MEDS: MIDAZOLAM 100 MG in SODIUM CHLORIDE 0.9% 80 ML IV SCH ×2 (21:30→23:36)
[2017-06-03] MEDS: ALBUTEROL 2.5 MG/3 ML NEB RESP TX SCH ×4 (00:13→20:27)
[2017-06-03] MEDS: INSULIN LISPRO 100 UNIT/ML SUBCUT SCH ×4 (00:32→17:31)
[2017-06-03 04:36] LABS: Allen Test Positive; Pt O2 Delivery Device Ventilator
[2017-06-03 04:37] LABS: ABG Base Excess -1.1 MMOL/L (-2.5-2.5); ABG HCO3 23.6 MMOL/L (20-26); ABG Oxygen Saturation 99.4 % (95-100); ABG PCO2 42.6 MM HG (35-48); ABG PH 7.364 (7.35-7.45); ABG TCO2 22.3 MMOL/L (23-27)
[2017-06-03] MEDS: LEVOTHYROXINE 25 MCG TABLET PO SCH (06:27)
[2017-06-03] MEDS: DORNASE ALFA 2.5 MG/2.5 ML VIAL RESP TX SCH ×2 (07:58→20:40)
[2017-06-03] MEDS ORDERED: VANCOMYCIN INJ 1,000 MG in SODIUM CHLORIDE 0.9% 250 ML IV PRN (08:46)
[2017-06-03] MEDS: MEROPENEM 1,000 MG in SYRINGE 1 EACH IV SCH ×2 (09:16→22:20)
[2017-06-03] MEDS: DILTIAZEM 30 MG TABLET PO SCH ×2 (09:16→13:10)
[2017-06-03] MEDS: METOPROLOL TARTRATE 25 MG TABLET PO SCH (09:17)
[2017-06-03] MEDS: MONTELUKAST 10 MG TABLET PO SCH (09:17)
[2017-06-03] MEDS: ASPIRIN EC 81 MG TABLET PO SCH (09:17)
[2017-06-03] MEDS: FERROUS SULFATE 325 MG TABLET PO SCH ×2 (09:17→20:07)
[2017-06-03] MEDS: CALCIUM (CARBONATE)/VITAMIN D 500 MG-200 UNIT TABLET PO SCH (09:17)
[2017-06-03] MEDS: FENOFIBRATE 145 MG TABLET PO SCH (09:17)
[2017-06-03] MEDS: POLYVINYL ALCOHOL 1.4% OPH SOLN 15 ML BOTTLE BOTH EYES SCH ×2 (09:17→20:07)
[2017-06-03] MEDS: FLUOROMETHOLONE 0.1% OPH SUSP 5 ML BOTTLE BOTH EYES SCH ×4 (09:18→20:07)
[2017-06-03] MEDS: PANTOPRAZOLE 40 MG VIAL IV SCH (09:18)
[2017-06-03] MEDS: APIXABAN 5 MG TABLET PO SCH ×2 (09:32→20:07)
[2017-06-03] MEDS: fentaNYL INJ 1,250 MCG in SODIUM CHLORIDE 0.9% 225 ML IV SCH ×2 (09:59→22:11)
[2017-06-03] MEDS: LEVOFLOXACIN INJ 750 MG in PREMIX 1 EACH IV SCH (10:00)
[2017-06-03] MEDS ORDERED: VANCOMYCIN INJ 1,000 MG in SODIUM CHLORIDE 0.9% 250 ML IV ONE (12:00)
[2017-06-03 12:19] LABS: Basophils # 0.1 10*3/uL (0.0-0.2); Basophils % 0.7 % (0.0-0.8); Eosinophils # 0.6 10*3/uL (0.0-0.87); Eosinophils % 5.3 % (0.00-10.9); Hematocrit 30.7 VOL% (35.7-47.0); Hemoglobin 9.9 GM/DL (12.0-16.0); Immature Granulocytes % 0.9 %; Lymphocytes # 0.7 10*3/uL (1.4-4.0); Lymphocytes % 6.1 % (21.3-54.2); Mean Corpuscular HGB Conc 32.2 GM/DL (32-36); Mean Corpuscular Hemoglobin 33 PG (27-34); Mean Corpuscular Volume 102.3 FL (87-102); Mean Platelet Volume 9.9 FL (9.6-12.0); Monocytes # 0.7 10*3/uL (0.11-0.8); Monocytes % 5.8 % (1.7-12.7); Neutrophils # 9.5 10*3/uL (1.4-7.4); Neutrophils % 81.2 % (38.7-73.9); Platelet Count 205 T/CUMM (130-400); Red Cell Distribution Width 20.5 % (9.3-17.3); White Blood Count 11.7 T/CUMM (4-12)
[2017-06-03 12:42] LABS: Calcium 7.7 MG/DL (8.5-10.1); Osmolality,Calculated 295.8 MOS/KG (273-304); Potassium 4.9 MMOL/L (3.5-5.1)
[2017-06-03] MEDS: PHENYLEPHRINE INJ 160 MG in SODIUM CHLORIDE 0.9% 234 ML IV SCH ×2 (12:52→22:14)
[2017-06-03] MEDS: SKIN HEALING OINT (AQUAPHOR) 50 GM TUBE TOP PRN (13:11)
[2017-06-03] MEDS: METOPROLOL TARTRATE 50 MG TABLET PO SCH ×2 (15:38→20:07)
[2017-06-03] MEDS: ACETAMINOPHEN 325 MG TABLET PO PRN (16:59)
[2017-06-03] MEDS: DILTIAZEM INJ 100 MG in SODIUM CHLORIDE 0.9% 100 ML IV SCH (20:08)
[2017-06-04] MEDS: MIDAZOLAM 100 MG in SODIUM CHLORIDE 0.9% 80 ML IV SCH (00:20)
[2017-06-04] MEDS: fentaNYL INJ 1,250 MCG in SODIUM CHLORIDE 0.9% 225 ML IV SCH ×3 (00:20→18:11)
[2017-06-04] MEDS: INSULIN LISPRO 100 UNIT/ML SUBCUT SCH ×4 (00:20→18:09)
[2017-06-04] MEDS: ALBUTEROL 2.5 MG/3 ML NEB RESP TX SCH ×4 (01:01→19:34)
[2017-06-04 04:22] LABS: ABG Base Excess -2.3 MMOL/L (-2.5-2.5); ABG HCO3 22.5 MMOL/L (20-26); ABG Oxygen Saturation 99.9 % (95-100); ABG PCO2 42.4 MM HG (35-48); ABG PH 7.347 (7.35-7.45); ABG TCO2 21.4 MMOL/L (23-27)
[2017-06-04 04:57] LABS: Calcium 7.9 MG/DL (8.5-10.1); Osmolality,Calculated 300.5 MOS/KG (273-304); Potassium 4.9 MMOL/L (3.5-5.1)
[2017-06-04] MEDS: LEVOTHYROXINE 25 MCG TABLET PO SCH (05:56)
[2017-06-04] MEDS: DORNASE ALFA 2.5 MG/2.5 ML VIAL RESP TX SCH ×2 (07:30→19:38)
[2017-06-04] MEDS: METOPROLOL TARTRATE 50 MG TABLET PO SCH ×3 (09:31→21:30)
[2017-06-04] MEDS: PANTOPRAZOLE 40 MG VIAL IV SCH (09:31)
[2017-06-04] MEDS: MEROPENEM 1,000 MG in SYRINGE 1 EACH IV SCH ×2 (09:31→21:30)
[2017-06-04] MEDS: MONTELUKAST 10 MG TABLET PO SCH (09:32)
[2017-06-04] MEDS: POLYVINYL ALCOHOL 1.4% OPH SOLN 15 ML BOTTLE BOTH EYES SCH ×2 (09:32→21:30)
[2017-06-04] MEDS: FENOFIBRATE 145 MG TABLET PO SCH (09:32)
[2017-06-04] MEDS: FLUOROMETHOLONE 0.1% OPH SUSP 5 ML BOTTLE BOTH EYES SCH ×4 (09:32→21:30)
[2017-06-04] MEDS: APIXABAN 5 MG TABLET PO SCH ×2 (09:32→21:30)
[2017-06-04] MEDS: CALCIUM (CARBONATE)/VITAMIN D 500 MG-200 UNIT TABLET PO SCH (09:32)
[2017-06-04] MEDS: ASPIRIN EC 81 MG TABLET PO SCH (09:32)
[2017-06-04] MEDS: FERROUS SULFATE 325 MG TABLET PO SCH ×2 (09:32→21:30)
[2017-06-04] MEDS ORDERED: COSYNTROPIN 0.25 MG VIAL IM ONE (09:54)
[2017-06-04] MEDS ORDERED: HYDROCORTISONE 100 MG VIAL IV SCH (10:00)
[2017-06-04] MEDS: PHENYLEPHRINE INJ 160 MG in SODIUM CHLORIDE 0.9% 234 ML IV SCH ×2 (12:44→23:10)
[2017-06-04] MEDS: DILTIAZEM INJ 100 MG in SODIUM CHLORIDE 0.9% 100 ML IV SCH ×2 (18:09→21:29)
[2017-06-05] MEDS ORDERED: VANCOMYCIN INJ 1,000 MG in SODIUM CHLORIDE 0.9% 250 ML IV ONE
[2017-06-05] MEDS: MIDAZOLAM 100 MG in SODIUM CHLORIDE 0.9% 80 ML IV SCH (00:34)
[2017-06-05] MEDS: fentaNYL INJ 1,250 MCG in SODIUM CHLORIDE 0.9% 225 ML IV SCH ×3 (00:34→12:15)
[2017-06-05] MEDS: INSULIN LISPRO 100 UNIT/ML SUBCUT SCH ×4 (00:35→18:29)
[2017-06-05] MEDS: ALBUTEROL 2.5 MG/3 ML NEB RESP TX SCH ×4 (00:40→19:56)
[2017-06-05 04:35] LABS: ABG Base Excess -3.9 MMOL/L (-2.5-2.5); ABG HCO3 21.2 MMOL/L (20-26); ABG Oxygen Saturation 99.6 % (95-100); ABG PCO2 44.9 MM HG (35-48); ABG PH 7.307 (7.35-7.45); ABG TCO2 20.6 MMOL/L (23-27)
[2017-06-05 04:44] LABS: Basophils % 0.4 % (0.0-0.8); Eosinophils % 0.1 % (0.00-10.9); Hematocrit 31.8 VOL% (35.7-47.0); Hemoglobin 10.3 GM/DL (12.0-16.0); Immature Granulocytes % 1.1 %; Immature Granulocytes Absolute 0.12 #; Lymphocytes # 0.8 10*3/uL (1.4-4.0); Lymphocytes % 7.5 % (21.3-54.2); Mean Corpuscular HGB Conc 32.4 GM/DL (32-36); Mean Corpuscular Hemoglobin 33 PG (27-34); Mean Corpuscular Volume 100.6 FL (87-102); Monocytes # 0.7 10*3/uL (0.11-0.8); Monocytes % 6.2 % (1.7-12.7); Neutrophils # 9.1 10*3/uL (1.4-7.4); Neutrophils % 84.7 % (38.7-73.9); Platelet Count 181 T/CUMM (130-400); Red Blood Count 3.16 MC/CUMM (3.8-5.5); Red Cell Distribution Width 20.5 % (9.3-17.3); White Blood Count 10.8 T/CUMM (4-12)
[2017-06-05 05:16] LABS: Prealbumin 3.5 MG/DL (20-40)
[2017-06-05 05:23] LABS: Calcium 7.7 MG/DL (8.5-10.1); Osmolality,Calculated 308.4 MOS/KG (273-304); Potassium 4.9 MMOL/L (3.5-5.1)
[2017-06-05] MEDS: LEVOTHYROXINE 25 MCG TABLET PO SCH (06:55)
[2017-06-05] MEDS: DORNASE ALFA 2.5 MG/2.5 ML VIAL RESP TX SCH ×2 (08:14→20:06)
[2017-06-05] MEDS: PHENYLEPHRINE INJ 160 MG in SODIUM CHLORIDE 0.9% 234 ML IV SCH ×2 (08:20→19:32)
[2017-06-05] MEDS: METOPROLOL TARTRATE 50 MG TABLET PO SCH ×3 (09:06→21:30)
[2017-06-05] MEDS: CALCIUM (CARBONATE)/VITAMIN D 500 MG-200 UNIT TABLET PO SCH (09:07)
[2017-06-05] MEDS: MONTELUKAST 10 MG TABLET PO SCH (09:08)
[2017-06-05] MEDS: FERROUS SULFATE 325 MG TABLET PO SCH ×2 (09:08→21:30)
[2017-06-05] MEDS: APIXABAN 5 MG TABLET PO SCH ×2 (09:08→21:30)
[2017-06-05] MEDS: ASPIRIN EC 81 MG TABLET PO SCH (09:08)
[2017-06-05] MEDS: FLUOROMETHOLONE 0.1% OPH SUSP 5 ML BOTTLE BOTH EYES SCH ×4 (09:08→21:30)
[2017-06-05] MEDS: FENOFIBRATE 145 MG TABLET PO SCH (09:08)
[2017-06-05] MEDS: PANTOPRAZOLE 40 MG VIAL IV SCH (09:09)
[2017-06-05] MEDS: POLYVINYL ALCOHOL 1.4% OPH SOLN 15 ML BOTTLE BOTH EYES SCH ×2 (09:13→21:30)
[2017-06-05] MEDS: MEROPENEM 1,000 MG in SYRINGE 1 EACH IV SCH (09:18)
[2017-06-05] MEDS: LEVOFLOXACIN INJ 750 MG in PREMIX 1 EACH IV SCH (09:21)
[2017-06-05] MEDS ORDERED: AMIODARONE INJ 450 MG in DEXTROSE 5% 241 ML IV SCH (16:00)
[2017-06-05] MEDS ORDERED: SODIUM CHLORIDE 0.9% 500 ML IV ONE (16:11)
[2017-06-06] MEDS: ALBUTEROL 2.5 MG/3 ML NEB RESP TX SCH ×4 (01:59→19:36)
[2017-06-06] MEDS: AMIODARONE INJ 450 MG in DEXTROSE 5% 241 ML IV SCH ×2 (02:04→18:33)
[2017-06-06] MEDS: PHENYLEPHRINE INJ 160 MG in SODIUM CHLORIDE 0.9% 234 ML IV SCH ×2 (02:50→18:51)
[2017-06-06] MEDS ORDERED: PHENYLEPHRINE DRIP 0 MG/0 ML PREMIX IV ONE (04:38)
[2017-06-06 05:16] LABS: ABG Base Excess -3.6 MMOL/L (-2.5-2.5); ABG HCO3 21.5 MMOL/L (20-26); ABG PO2 207.5 MM HG (80-95); ABG TCO2 22.7 MMOL/L (23-27)
[2017-06-06] MEDS: INSULIN LISPRO 100 UNIT/ML SUBCUT SCH ×4 (05:16→18:21)
[2017-06-06] MEDS: fentaNYL INJ 1,250 MCG in SODIUM CHLORIDE 0.9% 225 ML IV SCH ×2 (05:16→10:50)
[2017-06-06] MEDS: MIDAZOLAM 100 MG in SODIUM CHLORIDE 0.9% 80 ML IV SCH ×2 (05:16→21:00)
[2017-06-06] MEDS: NOREPINEPHRINE 16 MG in SODIUM CHLORIDE 0.9% 234 ML IV SCH ×3 (05:17→21:25)
[2017-06-06] MEDS: LEVOTHYROXINE 25 MCG TABLET PO SCH (06:28)
[2017-06-06] MEDS: DORNASE ALFA 2.5 MG/2.5 ML VIAL RESP TX SCH ×2 (07:49→19:36)
[2017-06-06] MEDS: POLYVINYL ALCOHOL 1.4% OPH SOLN 15 ML BOTTLE BOTH EYES SCH ×2 (09:46→21:25)
[2017-06-06] MEDS: PANTOPRAZOLE 40 MG VIAL IV SCH (09:46)
[2017-06-06] MEDS: MONTELUKAST 10 MG TABLET PO SCH (09:47)
[2017-06-06] MEDS: ASPIRIN EC 81 MG TABLET PO SCH (09:47)
[2017-06-06] MEDS: METOPROLOL TARTRATE 50 MG TABLET PO SCH ×3 (09:47→21:26)
[2017-06-06] MEDS: FLUOROMETHOLONE 0.1% OPH SUSP 5 ML BOTTLE BOTH EYES SCH ×4 (09:47→21:25)
[2017-06-06] MEDS: CALCIUM (CARBONATE)/VITAMIN D 500 MG-200 UNIT TABLET PO SCH (09:47)
[2017-06-06] MEDS: FENOFIBRATE 145 MG TABLET PO SCH (09:47)
[2017-06-06] MEDS: APIXABAN 5 MG TABLET PO SCH ×2 (09:47→21:26)
[2017-06-06] MEDS: FERROUS SULFATE 325 MG TABLET PO SCH ×2 (09:47→21:25)
[2017-06-06] MEDS ORDERED: PHENYLEPHRINE DRIP 40 MG/250 ML PREMIX IV ONE (16:50)
[2017-06-07] MEDS: INSULIN LISPRO 100 UNIT/ML SUBCUT SCH ×4 (00:26→18:36)
[2017-06-07] MEDS: fentaNYL INJ 1,250 MCG in SODIUM CHLORIDE 0.9% 225 ML IV SCH ×3 (00:27→22:03)
[2017-06-07] MEDS: MIDAZOLAM 100 MG in SODIUM CHLORIDE 0.9% 80 ML IV SCH (00:27)
[2017-06-07] MEDS: ALBUTEROL 2.5 MG/3 ML NEB RESP TX SCH ×4 (01:01→19:15)
[2017-06-07 04:55] LABS: ABG Base Excess -3.1 MMOL/L (-2.5-2.5); ABG HCO3 21.2 MMOL/L (20-26); ABG Oxygen Saturation 99.1 % (95-100); ABG PO2 213.1 MM HG (80-95); ABG TCO2 22.3 MMOL/L (23-27)
[2017-06-07 05:00] LABS: Basophils # 0.1 10*3/uL (0.0-0.2); Basophils % 0.4 % (0.0-0.8); Eosinophils # 0.3 10*3/uL (0.0-0.87); Eosinophils % 2.6 % (0.00-10.9); Hematocrit 27.7 VOL% (35.7-47.0); Hemoglobin 8.5 GM/DL (12.0-16.0); Immature Granulocytes % 1.2 %; Immature Granulocytes Absolute 0.15 #; Lymphocytes # 0.8 10*3/uL (1.4-4.0); Lymphocytes % 5.8 % (21.3-54.2); Mean Corpuscular HGB Conc 30.7 GM/DL (32-36); Mean Corpuscular Hemoglobin 32 PG (27-34); Mean Corpuscular Volume 105.3 FL (87-102); Mean Platelet Volume 10.8 FL (9.6-12.0); Monocytes # 0.7 10*3/uL (0.11-0.8); Monocytes % 5.1 % (1.7-12.7); Neutrophils # 10.9 10*3/uL (1.4-7.4); Neutrophils % 84.9 % (38.7-73.9); Platelet Count 119 T/CUMM (130-400); Red Blood Count 2.63 MC/CUMM (3.8-5.5); Red Cell Distribution Width 21.1 % (9.3-17.3); White Blood Count 12.9 T/CUMM (4-12)
[2017-06-07] MEDS: AMIODARONE INJ 450 MG in DEXTROSE 5% 241 ML IV SCH ×3 (05:10→22:16)
[2017-06-07 05:31] LABS: Calcium 7.5 MG/DL (8.5-10.1); Osmolality,Calculated 319.1 MOS/KG (273-304); Potassium 4.8 MMOL/L (3.5-5.1)
[2017-06-07 05:35] LABS: Albumin 1.5 G/DL (3.4-5.0); Bilirubin,Total 0.8 MG/DL (0.2-1.0); Calcium 7.6 MG/DL (8.5-10.1); Osmolality,Calculated 318.3 MOS/KG (273-304); Potassium 4.8 MMOL/L (3.5-5.1); Total Protein 4.9 G/DL (6.4-8.3)
[2017-06-07 05:41] LABS: Free T4 (Free Thyroxine) 0.76 NG/DL (0.76-1.46); Thyroid Stimulating Hormone 11.7 uIU/ml (0.358-3.74)
[2017-06-07] MEDS: LEVOTHYROXINE 25 MCG TABLET PO SCH (05:45)
[2017-06-07] MEDS: DORNASE ALFA 2.5 MG/2.5 ML VIAL RESP TX SCH ×2 (07:44→19:23)
[2017-06-07] MEDS ORDERED: FUROSEMIDE 40 MG/4 ML VIAL IV ONE (09:39)
[2017-06-07] MEDS: PANTOPRAZOLE 40 MG VIAL IV SCH (09:50)
[2017-06-07] MEDS: METOPROLOL TARTRATE 50 MG TABLET PO SCH ×3 (09:51→21:04)
[2017-06-07] MEDS: MONTELUKAST 10 MG TABLET PO SCH (09:51)
[2017-06-07] MEDS: APIXABAN 5 MG TABLET PO SCH ×2 (09:51→21:04)
[2017-06-07] MEDS: FENOFIBRATE 145 MG TABLET PO SCH (09:51)
[2017-06-07] MEDS: FERROUS SULFATE 325 MG TABLET PO SCH ×2 (09:51→21:04)
[2017-06-07] MEDS: ASPIRIN EC 81 MG TABLET PO SCH (09:51)
[2017-06-07] MEDS: CALCIUM (CARBONATE)/VITAMIN D 500 MG-200 UNIT TABLET PO SCH (09:51)
[2017-06-07] MEDS: POLYVINYL ALCOHOL 1.4% OPH SOLN 15 ML BOTTLE BOTH EYES SCH ×2 (09:52→21:05)
[2017-06-07] MEDS: FLUOROMETHOLONE 0.1% OPH SUSP 5 ML BOTTLE BOTH EYES SCH ×4 (09:52→21:05)
[2017-06-07] MEDS: FUROSEMIDE 40 MG/4 ML VIAL IV SCH (15:12)
[2017-06-07] MEDS: PHENYLEPHRINE INJ 160 MG in SODIUM CHLORIDE 0.9% 234 ML IV SCH (16:45)
[2017-06-07] MEDS: NOREPINEPHRINE 16 MG in SODIUM CHLORIDE 0.9% 234 ML IV SCH (22:02)
[2017-06-08] MEDS: fentaNYL INJ 1,250 MCG in SODIUM CHLORIDE 0.9% 225 ML IV SCH ×4 (00:33→20:13)
[2017-06-08] MEDS: INSULIN LISPRO 100 UNIT/ML SUBCUT SCH ×4 (00:34→18:33)
[2017-06-08] MEDS: MIDAZOLAM 100 MG in SODIUM CHLORIDE 0.9% 80 ML IV SCH (00:34)
[2017-06-08] MEDS: ALBUTEROL 2.5 MG/3 ML NEB RESP TX SCH ×4 (01:01→19:28)
[2017-06-08] MEDS: AMIODARONE INJ 450 MG in DEXTROSE 5% 241 ML IV SCH ×3 (02:27→19:52)
[2017-06-08 05:12] LABS: ABG Base Excess 0.8 MMOL/L (-2.5-2.5); ABG HCO3 25.2 MMOL/L (20-26); ABG PCO2 40.5 MM HG (35-48); ABG PH 7.407 (7.35-7.45); ABG TCO2 23.5 MMOL/L (23-27)
[2017-06-08] MEDS: LEVOTHYROXINE 25 MCG TABLET PO SCH (05:50)
[2017-06-08 06:03] LABS: Basophils # 0.1 10*3/uL (0.0-0.2); Basophils % 0.3 % (0.0-0.8); Eosinophils # 0.7 10*3/uL (0.0-0.87); Eosinophils % 4.5 % (0.00-10.9); Hematocrit 27.6 VOL% (35.7-47.0); Hemoglobin 9.1 GM/DL (12.0-16.0); Immature Granulocytes % 1.1 %; Immature Granulocytes Absolute 0.17 #; Lymphocytes # 1.2 10*3/uL (1.4-4.0); Lymphocytes % 7.7 % (21.3-54.2); Mean Corpuscular Hemoglobin 33 PG (27-34); Mean Corpuscular Volume 100.4 FL (87-102); Mean Platelet Volume 11.3 FL (9.6-12.0); Monocytes # 0.6 10*3/uL (0.11-0.8); Monocytes % 3.7 % (1.7-12.7); Neutrophils # 12.4 10*3/uL (1.4-7.4); Neutrophils % 82.7 % (38.7-73.9); Platelet Count 132 T/CUMM (130-400); Red Blood Count 2.75 MC/CUMM (3.8-5.5); Red Cell Distribution Width 21.2 % (9.3-17.3)
[2017-06-08 06:29] LABS: Calcium 7.6 MG/DL (8.5-10.1); Osmolality,Calculated 316.1 MOS/KG (273-304); Potassium 4.1 MMOL/L (3.5-5.1)
[2017-06-08] MEDS: DORNASE ALFA 2.5 MG/2.5 ML VIAL RESP TX SCH ×2 (07:27→19:45)
[2017-06-08] MEDS: FUROSEMIDE 40 MG/4 ML VIAL IV SCH ×2 (09:51→16:06)
[2017-06-08] MEDS: FERROUS SULFATE 325 MG TABLET PO SCH ×2 (09:51→21:22)
[2017-06-08] MEDS: FENOFIBRATE 145 MG TABLET PO SCH (09:51)
[2017-06-08] MEDS: CALCIUM (CARBONATE)/VITAMIN D 500 MG-200 UNIT TABLET PO SCH (09:52)
[2017-06-08] MEDS: APIXABAN 5 MG TABLET PO SCH ×2 (09:52→21:22)
[2017-06-08] MEDS: ASPIRIN EC 81 MG TABLET PO SCH (09:52)
[2017-06-08] MEDS: PANTOPRAZOLE 40 MG VIAL IV SCH (09:53)
[2017-06-08] MEDS: FLUOROMETHOLONE 0.1% OPH SUSP 5 ML BOTTLE BOTH EYES SCH ×4 (09:53→21:22)
[2017-06-08] MEDS: POLYVINYL ALCOHOL 1.4% OPH SOLN 15 ML BOTTLE BOTH EYES SCH ×2 (09:53→21:22)
[2017-06-08] MEDS: METOPROLOL TARTRATE 50 MG TABLET PO SCH ×3 (09:53→21:22)
[2017-06-08] MEDS: MONTELUKAST 10 MG TABLET PO SCH (09:53)
[2017-06-08] MEDS: CEFEPIME 500 MG in SYRINGE 1 EACH IV SCH (12:57)
[2017-06-08] MEDS: PHENYLEPHRINE INJ 160 MG in SODIUM CHLORIDE 0.9% 234 ML IV SCH (14:03)
[2017-06-08] MEDS: VANCOMYCIN INJ 1,000 MG in SODIUM CHLORIDE 0.9% 250 ML IV SCH (14:55)
[2017-06-08] MEDS: NOREPINEPHRINE 16 MG in SODIUM CHLORIDE 0.9% 234 ML IV SCH ×2 (19:52→20:13)
[2017-06-09] MEDS: fentaNYL INJ 1,250 MCG in SODIUM CHLORIDE 0.9% 225 ML IV SCH ×3 (00:09→22:41)
[2017-06-09] MEDS: MIDAZOLAM 100 MG in SODIUM CHLORIDE 0.9% 80 ML IV SCH (00:10)
[2017-06-09] MEDS: INSULIN LISPRO 100 UNIT/ML SUBCUT SCH ×4 (00:20→17:13)
[2017-06-09] MEDS: ALBUTEROL 2.5 MG/3 ML NEB RESP TX SCH ×4 (01:30→19:27)
[2017-06-09] MEDS: AMIODARONE INJ 450 MG in DEXTROSE 5% 241 ML IV SCH ×3 (02:06→22:43)
[2017-06-09 04:39] LABS: ABG Base Excess 4.6 MMOL/L (-2.5-2.5); ABG HCO3 28.5 MMOL/L (20-26); ABG Oxygen Saturation 98.9 % (95-100); ABG PCO2 46.7 MM HG (35-48); ABG PH 7.413 (7.35-7.45); ABG TCO2 27.3 MMOL/L (23-27)
[2017-06-09] MEDS: NOREPINEPHRINE 16 MG in SODIUM CHLORIDE 0.9% 234 ML IV SCH (04:50)
[2017-06-09 05:30] LABS: Calcium 7.8 MG/DL (8.5-10.1); Osmolality,Calculated 316.7 MOS/KG (273-304); Potassium 4.1 MMOL/L (3.5-5.1); Prealbumin 3.9 MG/DL (20-40)
[2017-06-09] MEDS: LEVOTHYROXINE 25 MCG TABLET PO SCH (06:08)
[2017-06-09] MEDS: DORNASE ALFA 2.5 MG/2.5 ML VIAL RESP TX SCH ×2 (07:39→19:27)
[2017-06-09] MEDS: FERROUS SULFATE 325 MG TABLET PO SCH ×2 (08:32→21:34)
[2017-06-09] MEDS: METOPROLOL TARTRATE 50 MG TABLET PO SCH ×3 (08:32→21:34)
[2017-06-09] MEDS: FENOFIBRATE 145 MG TABLET PO SCH (08:32)
[2017-06-09] MEDS: APIXABAN 5 MG TABLET PO SCH ×2 (08:32→21:34)
[2017-06-09] MEDS: MONTELUKAST 10 MG TABLET PO SCH (08:32)
[2017-06-09] MEDS: CALCIUM (CARBONATE)/VITAMIN D 500 MG-200 UNIT TABLET PO SCH (08:32)
[2017-06-09] MEDS: ASPIRIN EC 81 MG TABLET PO SCH (08:32)
[2017-06-09] MEDS: FUROSEMIDE 40 MG/4 ML VIAL IV SCH ×2 (08:33→17:10)
[2017-06-09] MEDS: FLUOROMETHOLONE 0.1% OPH SUSP 5 ML BOTTLE BOTH EYES SCH ×4 (08:33→21:35)
[2017-06-09] MEDS: POLYVINYL ALCOHOL 1.4% OPH SOLN 15 ML BOTTLE BOTH EYES SCH ×2 (08:33→21:35)
[2017-06-09] MEDS: PANTOPRAZOLE 40 MG VIAL IV SCH (08:33)
[2017-06-09] MEDS ORDERED: SODIUM CHLORIDE 0.9% 500 ML IV ONE (10:30)
[2017-06-09 11:08] LABS: ABG Base Excess 4.5 MMOL/L (-2.5-2.5); ABG HCO3 28.4 MMOL/L (20-26); ABG Oxygen Saturation 97.3 % (95-100); ABG PCO2 43.9 MM HG (35-48); ABG PH 7.432 (7.35-7.45); ABG PO2 90.2 MM HG (80-95); ABG TCO2 26.7 MMOL/L (23-27)
[2017-06-09] MEDS: CEFEPIME 500 MG in SYRINGE 1 EACH IV SCH (12:29)
[2017-06-09] MEDS: PHENYLEPHRINE INJ 160 MG in SODIUM CHLORIDE 0.9% 234 ML IV SCH (12:40)
[2017-06-09] MEDS: VANCOMYCIN INJ 1,000 MG in SODIUM CHLORIDE 0.9% 250 ML IV SCH (14:47)
[2017-06-09] MEDS: ACETAMINOPHEN 325 MG TABLET PO PRN (22:29)
[2017-06-10] MEDS: NOREPINEPHRINE 16 MG in SODIUM CHLORIDE 0.9% 234 ML IV SCH ×2 (00:34→21:11)
[2017-06-10] MEDS: INSULIN LISPRO 100 UNIT/ML SUBCUT SCH ×4 (00:35→19:04)
[2017-06-10] MEDS: MIDAZOLAM 100 MG in SODIUM CHLORIDE 0.9% 80 ML IV SCH (00:36)
[2017-06-10] MEDS: ALBUTEROL 2.5 MG/3 ML NEB RESP TX SCH ×4 (01:00→19:17)
[2017-06-10 04:21] LABS: ABG Base Excess 7.4 MMOL/L (-2.5-2.5); ABG HCO3 31.2 MMOL/L (20-26); ABG PCO2 45.6 MM HG (35-48); ABG PH 7.456 (7.35-7.45); ABG TCO2 29.4 MMOL/L (23-27)
[2017-06-10 04:23] LABS: ABG Oxygen Saturation 99.7 % (95-100)
[2017-06-10 04:51] LABS: Basophils % 0.4 % (0.0-0.8); Eosinophils # 0.6 10*3/uL (0.0-0.87); Eosinophils % 5.7 % (0.00-10.9); Hematocrit 28.4 VOL% (35.7-47.0); Immature Granulocytes % 0.6 %; Immature Granulocytes Absolute 0.07 #; Lymphocytes # 1.3 10*3/uL (1.4-4.0); Lymphocytes % 11.3 % (21.3-54.2); Mean Corpuscular HGB Conc 31.7 GM/DL (32-36); Mean Corpuscular Hemoglobin 33 PG (27-34); Mean Corpuscular Volume 104.8 FL (87-102); Monocytes # 0.4 10*3/uL (0.11-0.8); Monocytes % 3.4 % (1.7-12.7); Neutrophils # 8.8 10*3/uL (1.4-7.4); Neutrophils % 78.6 % (38.7-73.9); Platelet Count 121 T/CUMM (130-400); Red Blood Count 2.71 MC/CUMM (3.8-5.5); Red Cell Distribution Width 23.1 % (9.3-17.3); White Blood Count 11.2 T/CUMM (4-12)
[2017-06-10 05:09] LABS: Calcium 8.1 MG/DL (8.5-10.1); Osmolality,Calculated 318.3 MOS/KG (273-304); Potassium 3.8 MMOL/L (3.5-5.1)
[2017-06-10] MEDS: LEVOTHYROXINE 25 MCG TABLET PO SCH (06:11)
[2017-06-10] MEDS: DORNASE ALFA 2.5 MG/2.5 ML VIAL RESP TX SCH ×2 (07:13→19:17)
[2017-06-10] MEDS ORDERED: FUROSEMIDE 20 MG/2 ML VIAL ONE (09:17)
[2017-06-10] MEDS: FUROSEMIDE 40 MG/4 ML VIAL IV SCH ×2 (09:32→19:01)
[2017-06-10] MEDS: MONTELUKAST 10 MG TABLET PO SCH (09:37)
[2017-06-10] MEDS: ASPIRIN EC 81 MG TABLET PO SCH (09:37)
[2017-06-10] MEDS: FENOFIBRATE 145 MG TABLET PO SCH (09:38)
[2017-06-10] MEDS: APIXABAN 5 MG TABLET PO SCH ×2 (09:38→21:11)
[2017-06-10] MEDS: FERROUS SULFATE 325 MG TABLET PO SCH ×2 (09:38→21:11)
[2017-06-10] MEDS: METOPROLOL TARTRATE 50 MG TABLET PO SCH ×3 (09:39→21:12)
[2017-06-10] MEDS: FLUOROMETHOLONE 0.1% OPH SUSP 5 ML BOTTLE BOTH EYES SCH ×4 (09:39→21:11)
[2017-06-10] MEDS: POLYVINYL ALCOHOL 1.4% OPH SOLN 15 ML BOTTLE BOTH EYES SCH ×2 (09:39→21:11)
[2017-06-10] MEDS: CALCIUM (CARBONATE)/VITAMIN D 500 MG-200 UNIT TABLET PO SCH (09:39)
[2017-06-10] MEDS: PANTOPRAZOLE 40 MG VIAL IV SCH (09:48)
[2017-06-10] MEDS: CEFEPIME 500 MG in SYRINGE 1 EACH IV SCH (12:55)
[2017-06-10] MEDS: AMIODARONE INJ 450 MG in DEXTROSE 5% 241 ML IV SCH (14:01)
[2017-06-10] MEDS: VANCOMYCIN INJ 1,000 MG in SODIUM CHLORIDE 0.9% 250 ML IV SCH (14:30)
[2017-06-10] MEDS ORDERED: AMIODARONE 200 MG TABLET PO SCH (16:30)
[2017-06-10] MEDS ORDERED: AMIODARONE 200 MG TABLET PO ONE (19:00)
[2017-06-10] MEDS: fentaNYL INJ 1,250 MCG in SODIUM CHLORIDE 0.9% 225 ML IV SCH (19:31)
[2017-06-10] MEDS: PHENYLEPHRINE INJ 160 MG in SODIUM CHLORIDE 0.9% 234 ML IV SCH (19:34)
[2017-06-11] MEDS: fentaNYL INJ 1,250 MCG in SODIUM CHLORIDE 0.9% 225 ML IV SCH ×3 (00:35→16:56)
[2017-06-11] MEDS: MIDAZOLAM 100 MG in SODIUM CHLORIDE 0.9% 80 ML IV SCH (00:35)
[2017-06-11] MEDS: INSULIN LISPRO 100 UNIT/ML SUBCUT SCH ×4 (00:36→18:09)
[2017-06-11] MEDS: ALBUTEROL 2.5 MG/3 ML NEB RESP TX SCH ×4 (01:48→19:25)
[2017-06-11 04:41] LABS: ABG HCO3 35.8 MMOL/L (20-26); ABG Oxygen Saturation 99.2 % (95-100); ABG PCO2 56.4 MM HG (35-48); ABG TCO2 34.6 MMOL/L (23-27)
[2017-06-11 04:59] LABS: Basophils # 0.1 10*3/uL (0.0-0.2); Basophils % 0.6 % (0.0-0.8); Eosinophils % 9.8 % (0.00-10.9); Hematocrit 32.6 VOL% (35.7-47.0); Hemoglobin 10.1 GM/DL (12.0-16.0); Immature Granulocytes % 0.7 %; Immature Granulocytes Absolute 0.07 #; Lymphocytes # 1.4 10*3/uL (1.4-4.0); Lymphocytes % 13.5 % (21.3-54.2); Mean Corpuscular Hemoglobin 33 PG (27-34); Mean Corpuscular Volume 107.2 FL (87-102); Mean Platelet Volume 11.1 FL (9.6-12.0); Monocytes # 0.4 10*3/uL (0.11-0.8); Monocytes % 4.1 % (1.7-12.7); Neutrophils # 7.4 10*3/uL (1.4-7.4); Neutrophils % 71.3 % (38.7-73.9); Platelet Count 127 T/CUMM (130-400); Red Blood Count 3.04 MC/CUMM (3.8-5.5); White Blood Count 10.3 T/CUMM (4-12)
[2017-06-11 05:05] LABS: INR 1.4; PT Patient Result 14.7 SECS; Partial Thromboplastin Time 36.1 SECS (0-40)
[2017-06-11 05:25] LABS: Hypochromasia 1+; Macrocytosis 1+; Target Cells Slight
[2017-06-11 05:26] LABS: Osmolality,Calculated 316.3 MOS/KG (273-304); Potassium 3.6 MMOL/L (3.5-5.1)
[2017-06-11 05:26] LABS: Platelet Estimate Adequate
[2017-06-11] MEDS: LEVOTHYROXINE 25 MCG TABLET PO SCH (06:06)
[2017-06-11] MEDS: DORNASE ALFA 2.5 MG/2.5 ML VIAL RESP TX SCH ×2 (06:53→19:30)
[2017-06-11] MEDS: FENOFIBRATE 145 MG TABLET PO SCH (08:46)
[2017-06-11] MEDS: PANTOPRAZOLE 40 MG VIAL IV SCH (08:46)
[2017-06-11] MEDS: FUROSEMIDE 40 MG/4 ML VIAL IV SCH ×2 (08:46→15:59)
[2017-06-11] MEDS: MONTELUKAST 10 MG TABLET PO SCH (08:47)
[2017-06-11] MEDS: CALCIUM (CARBONATE)/VITAMIN D 500 MG-200 UNIT TABLET PO SCH (08:47)
[2017-06-11] MEDS: FERROUS SULFATE 325 MG TABLET PO SCH ×2 (08:47→20:26)
[2017-06-11] MEDS: APIXABAN 5 MG TABLET PO SCH ×2 (08:47→20:27)
[2017-06-11] MEDS: ASPIRIN EC 81 MG TABLET PO SCH (08:47)
[2017-06-11] MEDS: POLYVINYL ALCOHOL 1.4% OPH SOLN 15 ML BOTTLE BOTH EYES SCH ×2 (08:48→20:30)
[2017-06-11] MEDS: FLUOROMETHOLONE 0.1% OPH SUSP 5 ML BOTTLE BOTH EYES SCH ×4 (08:48→20:30)
[2017-06-11] MEDS: AMIODARONE 200 MG TABLET PO SCH (08:49)
[2017-06-11] MEDS: METOPROLOL TARTRATE 50 MG TABLET PO SCH ×3 (08:49→20:26)
[2017-06-11] MEDS: CEFEPIME 500 MG in SYRINGE 1 EACH IV SCH (12:30)
[2017-06-11] MEDS: VANCOMYCIN INJ 1,000 MG in SODIUM CHLORIDE 0.9% 250 ML IV SCH (14:01)
[2017-06-11] MEDS ORDERED: NOREPINEPHRINE 4 MG/4 ML VIAL IV ONE ×2 (14:22→14:32)
[2017-06-11] MEDS: NOREPINEPHRINE 16 MG in SODIUM CHLORIDE 0.9% 234 ML IV SCH (14:39)
[2017-06-11] MEDS: PHENYLEPHRINE INJ 160 MG in SODIUM CHLORIDE 0.9% 234 ML IV SCH (14:40)
[2017-06-11] MEDS ORDERED: SODIUM CHLORIDE 0.9% 500 ML IV ONE (22:11)
[2017-06-12] MEDS: fentaNYL INJ 1,250 MCG in SODIUM CHLORIDE 0.9% 225 ML IV SCH ×2 (01:23→12:23)
[2017-06-12] MEDS: INSULIN LISPRO 100 UNIT/ML SUBCUT SCH ×4 (01:28→17:47)
[2017-06-12] MEDS: ALBUTEROL 2.5 MG/3 ML NEB RESP TX SCH ×4 (02:02→19:35)
[2017-06-12] MEDS: NOREPINEPHRINE 16 MG in SODIUM CHLORIDE 0.9% 234 ML IV SCH ×3 (04:55→17:08)
[2017-06-12 05:01] LABS: ABG Base Excess 9.5 MMOL/L (-2.5-2.5); ABG HCO3 33.3 MMOL/L (20-26); ABG Oxygen Saturation 98.4 % (95-100); ABG PCO2 54.1 MM HG (35-48); ABG PH 7.435 (7.35-7.45); ABG TCO2 30.5 MMOL/L (23-27); Basophils # 0.1 10*3/uL (0.0-0.2); Basophils % 0.5 % (0.0-0.8); Eosinophils % 10.9 % (0.00-10.9); Hematocrit 29.1 VOL% (35.7-47.0); Hemoglobin 8.9 GM/DL (12.0-16.0); Immature Granulocytes % 0.5 %; Immature Granulocytes Absolute 0.05 #; Lymphocytes # 0.9 10*3/uL (1.4-4.0); Lymphocytes % 9.3 % (21.3-54.2); Mean Corpuscular HGB Conc 30.6 GM/DL (32-36); Mean Corpuscular Hemoglobin 33 PG (27-34); Mean Platelet Volume 11.1 FL (9.6-12.0); Monocytes # 0.7 10*3/uL (0.11-0.8); Monocytes % 7.4 % (1.7-12.7); Neutrophils # 6.5 10*3/uL (1.4-7.4); Neutrophils % 71.4 % (38.7-73.9); Platelet Count 120 T/CUMM (130-400); Red Blood Count 2.67 MC/CUMM (3.8-5.5); Red Cell Distribution Width 24.4 % (9.3-17.3); White Blood Count 9.1 T/CUMM (4-12)
[2017-06-12 05:24] LABS: Giant Platelets Few; Hypochromasia 1+; Platelet Estimate Decreased
[2017-06-12 05:25] LABS: Macrocytosis Slight
[2017-06-12 05:27] LABS: Osmolality,Calculated 322.7 MOS/KG (273-304); Potassium 3.8 MMOL/L (3.5-5.1)
[2017-06-12] MEDS: LEVOTHYROXINE 25 MCG TABLET PO SCH (06:29)
[2017-06-12] MEDS: DORNASE ALFA 2.5 MG/2.5 ML VIAL RESP TX SCH ×2 (07:06→19:35)
[2017-06-12] MEDS: FUROSEMIDE 40 MG/4 ML VIAL IV SCH ×2 (08:07→17:05)
[2017-06-12] MEDS: ASPIRIN EC 81 MG TABLET PO SCH (08:08)
[2017-06-12] MEDS: FERROUS SULFATE 325 MG TABLET PO SCH ×2 (08:08→20:39)
[2017-06-12] MEDS: MONTELUKAST 10 MG TABLET PO SCH (08:08)
[2017-06-12] MEDS: AMIODARONE 200 MG TABLET PO SCH (08:08)
[2017-06-12] MEDS: APIXABAN 5 MG TABLET PO SCH ×2 (08:08→20:39)
[2017-06-12] MEDS: CALCIUM (CARBONATE)/VITAMIN D 500 MG-200 UNIT TABLET PO SCH (08:08)
[2017-06-12] MEDS: FENOFIBRATE 145 MG TABLET PO SCH (08:08)
[2017-06-12] MEDS: METOPROLOL TARTRATE 50 MG TABLET PO SCH ×3 (08:08→20:39)
[2017-06-12] MEDS: POLYVINYL ALCOHOL 1.4% OPH SOLN 15 ML BOTTLE BOTH EYES SCH ×2 (08:09→20:38)
[2017-06-12] MEDS: PANTOPRAZOLE 40 MG VIAL IV SCH (08:09)
[2017-06-12] MEDS: FLUOROMETHOLONE 0.1% OPH SUSP 5 ML BOTTLE BOTH EYES SCH ×4 (08:09→20:38)
[2017-06-12] MEDS: CEFEPIME 500 MG in SYRINGE 1 EACH IV SCH (13:07)
[2017-06-12] MEDS: MIDAZOLAM 100 MG in SODIUM CHLORIDE 0.9% 80 ML IV SCH ×2 (13:12→20:39)
[2017-06-12] MEDS: VANCOMYCIN INJ 1,000 MG in SODIUM CHLORIDE 0.9% 250 ML IV SCH (14:08)
[2017-06-12] MEDS: PHENYLEPHRINE INJ 160 MG in SODIUM CHLORIDE 0.9% 234 ML IV SCH (17:08)
[2017-06-13] MEDS: INSULIN LISPRO 100 UNIT/ML SUBCUT SCH ×4 (00:51→18:42)
[2017-06-13] MEDS: fentaNYL INJ 1,250 MCG in SODIUM CHLORIDE 0.9% 225 ML IV SCH ×3 (00:53→19:40)
[2017-06-13] MEDS: ALBUTEROL 2.5 MG/3 ML NEB RESP TX SCH ×4 (00:59→18:27)
[2017-06-13] MEDS: NOREPINEPHRINE 16 MG in SODIUM CHLORIDE 0.9% 234 ML IV SCH ×2 (01:32→19:15)
[2017-06-13 05:51] LABS: ABG Base Excess 12.4 MMOL/L (-2.5-2.5); ABG HCO3 36.2 MMOL/L (20-26); ABG Oxygen Saturation 98.2 % (95-100); ABG PCO2 54.5 MM HG (35-48); ABG PH 7.454 (7.35-7.45); ABG PO2 95.9 MM HG (80-95); ABG TCO2 35.2 MMOL/L (23-27)
[2017-06-13] MEDS: LEVOTHYROXINE 25 MCG TABLET PO SCH (06:06)
[2017-06-13] MEDS: DORNASE ALFA 2.5 MG/2.5 ML VIAL RESP TX SCH ×2 (09:01→18:27)
[2017-06-13] MEDS: FERROUS SULFATE 325 MG TABLET PO SCH ×2 (10:04→20:24)
[2017-06-13] MEDS: FENOFIBRATE 145 MG TABLET PO SCH (10:05)
[2017-06-13] MEDS: METOPROLOL TARTRATE 50 MG TABLET PO SCH ×3 (10:05→20:24)
[2017-06-13] MEDS: APIXABAN 5 MG TABLET PO SCH ×2 (10:06→20:24)
[2017-06-13] MEDS: CALCIUM (CARBONATE)/VITAMIN D 500 MG-200 UNIT TABLET PO SCH (10:06)
[2017-06-13] MEDS: AMIODARONE 200 MG TABLET PO SCH (10:06)
[2017-06-13] MEDS: ASPIRIN EC 81 MG TABLET PO SCH (10:06)
[2017-06-13] MEDS: MONTELUKAST 10 MG TABLET PO SCH (10:07)
[2017-06-13] MEDS: FLUOROMETHOLONE 0.1% OPH SUSP 5 ML BOTTLE BOTH EYES SCH ×4 (10:08→23:23)
[2017-06-13] MEDS: POLYVINYL ALCOHOL 1.4% OPH SOLN 15 ML BOTTLE BOTH EYES SCH ×2 (10:08→20:24)
[2017-06-13] MEDS: FUROSEMIDE 40 MG/4 ML VIAL IV SCH ×2 (10:18→18:45)
[2017-06-13] MEDS: PANTOPRAZOLE 40 MG VIAL IV SCH (10:45)
[2017-06-13] MEDS: CEFEPIME 500 MG in SYRINGE 1 EACH IV SCH (16:06)
[2017-06-13] MEDS: VANCOMYCIN INJ 1,000 MG in SODIUM CHLORIDE 0.9% 250 ML IV SCH (16:13)
[2017-06-13] MEDS: PHENYLEPHRINE INJ 160 MG in SODIUM CHLORIDE 0.9% 234 ML IV SCH (16:42)
[2017-06-13] MEDS: MIDAZOLAM 100 MG in SODIUM CHLORIDE 0.9% 80 ML IV SCH (19:20)
[2017-06-14] MEDS: INSULIN LISPRO 100 UNIT/ML SUBCUT SCH ×4 (00:02→18:38)
[2017-06-14] MEDS: ALBUTEROL 2.5 MG/3 ML NEB RESP TX SCH ×4 (01:02→19:59)
[2017-06-14 03:14] LABS: ABG HCO3 36.8 MMOL/L (20-26); ABG Oxygen Saturation 96.3 % (95-100); ABG PCO2 53.9 MM HG (35-48); ABG PH 7.464 (7.35-7.45); ABG PO2 78.6 MM HG (80-95); ABG TCO2 35.9 MMOL/L (23-27)
[2017-06-14] MEDS: fentaNYL INJ 1,250 MCG in SODIUM CHLORIDE 0.9% 225 ML IV SCH ×2 (03:31→19:04)
[2017-06-14] MEDS: NOREPINEPHRINE 16 MG in SODIUM CHLORIDE 0.9% 234 ML IV SCH ×2 (05:09→18:15)
[2017-06-14] MEDS: LEVOTHYROXINE 25 MCG TABLET PO SCH (06:30)
[2017-06-14] MEDS: DORNASE ALFA 2.5 MG/2.5 ML VIAL RESP TX SCH ×2 (08:28→19:59)
[2017-06-14] MEDS: CALCIUM (CARBONATE)/VITAMIN D 500 MG-200 UNIT TABLET PO SCH (08:59)
[2017-06-14] MEDS: MONTELUKAST 10 MG TABLET PO SCH (08:59)
[2017-06-14] MEDS: ASPIRIN EC 81 MG TABLET PO SCH (08:59)
[2017-06-14] MEDS: APIXABAN 5 MG TABLET PO SCH ×2 (08:59→21:09)
[2017-06-14] MEDS: FENOFIBRATE 145 MG TABLET PO SCH (09:00)
[2017-06-14] MEDS: FERROUS SULFATE 325 MG TABLET PO SCH ×2 (09:00→21:09)
[2017-06-14] MEDS: AMIODARONE 200 MG TABLET PO SCH (09:00)
[2017-06-14] MEDS: METOPROLOL TARTRATE 50 MG TABLET PO SCH ×3 (09:00→21:09)
[2017-06-14] MEDS: POLYVINYL ALCOHOL 1.4% OPH SOLN 15 ML BOTTLE BOTH EYES SCH ×2 (09:01→21:09)
[2017-06-14] MEDS: FLUOROMETHOLONE 0.1% OPH SUSP 5 ML BOTTLE BOTH EYES SCH ×4 (09:03→21:09)
[2017-06-14] MEDS: FUROSEMIDE 40 MG/4 ML VIAL IV SCH ×2 (09:19→17:30)
[2017-06-14] MEDS: PANTOPRAZOLE 40 MG VIAL IV SCH (09:24)
[2017-06-14] MEDS: PHENYLEPHRINE INJ 160 MG in SODIUM CHLORIDE 0.9% 234 ML IV SCH (17:42)
[2017-06-14] MEDS: MIDAZOLAM 100 MG in SODIUM CHLORIDE 0.9% 80 ML IV SCH (19:04)
[2017-06-15] MEDS: ALBUTEROL 2.5 MG/3 ML NEB RESP TX SCH ×4 (00:37→18:19)
[2017-06-15] MEDS: MIDAZOLAM 100 MG in SODIUM CHLORIDE 0.9% 80 ML IV SCH ×3 (00:46→20:24)
[2017-06-15] MEDS: fentaNYL INJ 1,250 MCG in SODIUM CHLORIDE 0.9% 225 ML IV SCH ×5 (00:46→22:45)
[2017-06-15] MEDS: INSULIN LISPRO 100 UNIT/ML SUBCUT SCH ×4 (01:18→17:29)
[2017-06-15] MEDS: LEVOTHYROXINE 25 MCG TABLET PO SCH (06:37)
[2017-06-15] MEDS: CALCIUM (CARBONATE)/VITAMIN D 500 MG-200 UNIT TABLET PO SCH (08:07)
[2017-06-15] MEDS: FENOFIBRATE 145 MG TABLET PO SCH (08:07)
[2017-06-15] MEDS: ASPIRIN EC 81 MG TABLET PO SCH (08:07)
[2017-06-15] MEDS: APIXABAN 5 MG TABLET PO SCH ×2 (08:07→20:25)
[2017-06-15] MEDS: METOPROLOL TARTRATE 50 MG TABLET PO SCH (08:07)
[2017-06-15] MEDS: MONTELUKAST 10 MG TABLET PO SCH (08:07)
[2017-06-15] MEDS: AMIODARONE 200 MG TABLET PO SCH (08:07)
[2017-06-15] MEDS: FERROUS SULFATE 325 MG TABLET PO SCH ×2 (08:08→20:25)
[2017-06-15] MEDS: FUROSEMIDE 40 MG/4 ML VIAL IV SCH ×2 (08:08→15:00)
[2017-06-15] MEDS: POLYVINYL ALCOHOL 1.4% OPH SOLN 15 ML BOTTLE BOTH EYES SCH ×2 (08:08→20:25)
[2017-06-15] MEDS: DORNASE ALFA 2.5 MG/2.5 ML VIAL RESP TX SCH ×2 (08:09→18:19)
[2017-06-15] MEDS: PANTOPRAZOLE 40 MG VIAL IV SCH (08:12)
[2017-06-15] MEDS: FLUOROMETHOLONE 0.1% OPH SUSP 5 ML BOTTLE BOTH EYES SCH ×4 (08:13→20:25)
[2017-06-15 12:02] LABS: Free T4 (Free Thyroxine) 0.96 NG/DL (0.76-1.46); Thyroid Stimulating Hormone 21.3 uIU/ml (0.358-3.74)
[2017-06-15] MEDS: PHENYLEPHRINE INJ 160 MG in SODIUM CHLORIDE 0.9% 234 ML IV SCH (14:11)
[2017-06-15] MEDS: METOPROLOL TARTRATE 25 MG TABLET PO SCH ×2 (14:48→20:25)
[2017-06-15] MEDS: NOREPINEPHRINE 16 MG in SODIUM CHLORIDE 0.9% 234 ML IV SCH (15:11)
[2017-06-16] MEDS: INSULIN LISPRO 100 UNIT/ML SUBCUT SCH ×5 (00:04→23:41)
[2017-06-16] MEDS: ALBUTEROL 2.5 MG/3 ML NEB RESP TX SCH ×3 (01:23→12:30)
[2017-06-16] MEDS: NOREPINEPHRINE 16 MG in SODIUM CHLORIDE 0.9% 234 ML IV SCH ×4 (01:38→21:23)
[2017-06-16] MEDS: MIDAZOLAM 100 MG in SODIUM CHLORIDE 0.9% 80 ML IV SCH ×2 (01:39→23:34)
[2017-06-16 03:06] LABS: ABG Base Excess 11.5 MMOL/L (-2.5-2.5); ABG HCO3 35.3 MMOL/L (20-26); ABG Oxygen Saturation 98.1 % (95-100); ABG PCO2 49.2 MM HG (35-48); ABG PH 7.478 (7.35-7.45); ABG PO2 91.5 MM HG (80-95); Allen Test Positive; Pt O2 Delivery Device Ventilator
[2017-06-16] MEDS: fentaNYL INJ 1,250 MCG in SODIUM CHLORIDE 0.9% 225 ML IV SCH ×4 (04:51→23:35)
[2017-06-16 06:17] LABS: Prealbumin 3.7 MG/DL (20-40)
[2017-06-16] MEDS: ACETAMINOPHEN 325 MG TABLET PO PRN ×2 (06:38→23:42)
[2017-06-16] MEDS: LEVOTHYROXINE 25 MCG TABLET PO SCH (06:38)
[2017-06-16] MEDS: DORNASE ALFA 2.5 MG/2.5 ML VIAL RESP TX SCH (07:16)
[2017-06-16] MEDS: FUROSEMIDE 40 MG/4 ML VIAL IV SCH ×2 (08:00→16:48)
[2017-06-16] MEDS: CALCIUM (CARBONATE)/VITAMIN D 500 MG-200 UNIT TABLET PO SCH (08:01)
[2017-06-16] MEDS: FENOFIBRATE 145 MG TABLET PO SCH (08:01)
[2017-06-16] MEDS: PANTOPRAZOLE 40 MG VIAL IV SCH (08:01)
[2017-06-16] MEDS: METOPROLOL TARTRATE 25 MG TABLET PO SCH ×4 (08:01→20:09)
[2017-06-16] MEDS: MONTELUKAST 10 MG TABLET PO SCH (08:01)
[2017-06-16] MEDS: ASPIRIN EC 81 MG TABLET PO SCH (08:01)
[2017-06-16] MEDS: FLUOROMETHOLONE 0.1% OPH SUSP 5 ML BOTTLE BOTH EYES SCH ×4 (08:02→20:09)
[2017-06-16] MEDS: AMIODARONE 200 MG TABLET PO SCH (08:02)
[2017-06-16] MEDS: POLYVINYL ALCOHOL 1.4% OPH SOLN 15 ML BOTTLE BOTH EYES SCH ×2 (08:02→20:09)
[2017-06-16] MEDS: FERROUS SULFATE 325 MG TABLET PO SCH ×2 (08:02→20:09)
[2017-06-16] MEDS: SKIN HEALING OINT (AQUAPHOR) 50 GM TUBE TOP PRN (08:02)
[2017-06-16] MEDS: APIXABAN 5 MG TABLET PO SCH ×2 (08:02→20:08)
[2017-06-16] MEDS: PHENYLEPHRINE INJ 160 MG in SODIUM CHLORIDE 0.9% 234 ML IV SCH (15:11)
[2017-06-17] MEDS: ALBUTEROL 2.5 MG/3 ML NEB RESP TX SCH ×4 (00:49→13:31)
[2017-06-17] MEDS: fentaNYL INJ 1,250 MCG in SODIUM CHLORIDE 0.9% 225 ML IV SCH (04:05)
[2017-06-17 04:16] LABS: Calcium 7.4 MG/DL (8.5-10.1); Osmolality,Calculated 280.5 MOS/KG (273-304)
[2017-06-17 04:44] LABS: ABG Base Excess 9.5 MMOL/L (-2.5-2.5); ABG HCO3 33.4 MMOL/L (20-26); ABG Oxygen Saturation 97.6 % (95-100); ABG PCO2 42.6 MM HG (35-48); ABG PH 7.512 (7.35-7.45); ABG PO2 96.1 MM HG (80-95); ABG TCO2 34.7 MMOL/L (23-27); Allen Test Positive; Pt O2 Delivery Device Ventilator
[2017-06-17] MEDS: NOREPINEPHRINE 16 MG in SODIUM CHLORIDE 0.9% 234 ML IV SCH (04:48)
[2017-06-17] MEDS: INSULIN LISPRO 100 UNIT/ML SUBCUT SCH ×3 (06:19→17:35)
[2017-06-17] MEDS: LEVOTHYROXINE 25 MCG TABLET PO SCH (06:20)
[2017-06-17] MEDS: DORNASE ALFA 2.5 MG/2.5 ML VIAL RESP TX SCH ×2 (06:53→07:47)
[2017-06-17] MEDS ORDERED: DESITIN 4OZ/NYSTATIN 15 GRAM MIXTURE PASTE TOP SCH (09:00)
[2017-06-17] MEDS: FERROUS SULFATE 325 MG TABLET PO SCH (10:21)
[2017-06-17] MEDS: METOPROLOL TARTRATE 25 MG TABLET PO SCH ×2 (10:21→16:20)
[2017-06-17] MEDS: APIXABAN 5 MG TABLET PO SCH (10:21)
[2017-06-17] MEDS: ASPIRIN EC 81 MG TABLET PO SCH (10:21)
[2017-06-17] MEDS: MONTELUKAST 10 MG TABLET PO SCH (10:21)
[2017-06-17] MEDS: CALCIUM (CARBONATE)/VITAMIN D 500 MG-200 UNIT TABLET PO SCH (10:21)
[2017-06-17] MEDS: FUROSEMIDE 40 MG/4 ML VIAL IV SCH ×2 (10:21→16:20)
[2017-06-17] MEDS: POLYVINYL ALCOHOL 1.4% OPH SOLN 15 ML BOTTLE BOTH EYES SCH (10:21)
[2017-06-17] MEDS: AMIODARONE 200 MG TABLET PO SCH (10:21)
[2017-06-17] MEDS: PANTOPRAZOLE 40 MG VIAL IV SCH (10:21)
[2017-06-17] MEDS: FLUOROMETHOLONE 0.1% OPH SUSP 5 ML BOTTLE BOTH EYES SCH ×3 (10:21→16:20)
[2017-06-17] MEDS: FENOFIBRATE 145 MG TABLET PO SCH (10:22)
[2017-06-17] MEDS: PROPOFOL 1,000 MG/100 ML BOTTLE IV SCH ×2 (10:22→16:21)
[2017-06-17] MEDS: PHENYLEPHRINE INJ 160 MG in SODIUM CHLORIDE 0.9% 234 ML IV SCH (12:28)
[2017-06-17] MEDS ORDERED: INFLUENZA VIRUS VACCINE 0.5 ML SYRINGE IM ONE (13:06)
[2017-06-17] MEDS ORDERED: PNEUMOCOCCAL VACCINE (13 VALENT) 0.5 ML SYRINGE IM ONE (13:06)
[2017-06-17] MEDS ORDERED: NOREPINEPHRINE 4 MG/4 ML VIAL IV ONE (17:27)
[2017-06-17 18:47] VITALS: BP 102/87
== END 2017-06-17 18:30 | DRG 264 ==
LOC: N.ED 18:44 → N.EDINP 20:54 → SUATTDRO 20:54 → N.TELES 21:19 → N.CC 05-30 23:01
PROVIDERS: ADMIT Internal Medicine; ATTEND Internal Medicine